=== PATIENT | male | born 1950 | race Caucasian/White ===

== ENCOUNTER 2017-09-28 20:06 | Emergency (ER) | payer MEDICARE, OTHER ==
[2017-09-28] MEDS: NS 1,000 ML IV (21:44)
[2017-09-28] MEDS: ONDANSETRON 4MG/2ML VIAL (J2405) IV (21:45)
[2017-09-28] MEDS: GASTROGRAFIN SOLUTION 30ML PO ×2 (22:15→22:45)
[2017-09-28 22:42] LABS: BASO % 0.3 % (0.0-1.0); EOS # 0.3 10^3/uL (0.0-0.50); HEMATOCRIT 50.8 % (42.0-52.0); IMMATURE GRANULOCYTE % 0.4 % (0-3.0); LYMPH # 1.4 10^3/uL (1.5-4.5); LYMPH % 11.5 % (24.0-44.0); MEAN CORPUSCULAR HEMOGLOBIN 32.8 pg (27.0-33.0); MEAN CORPUSCULAR HGB CONC 33.5 g/dl (32.0-36.5); MEAN CORPUSCULAR VOLUME 97.9 fl (80.0-96.0); MONO # 1.2 10^3/uL (0.0-0.8); MONO % 9.8 % (0.0-5.0); NEUTROPHILS # 9.3 10^3/uL (1.8-7.7); PLATELET COUNT, AUTOMATED 136 10^3/uL (150-450); RED BLOOD COUNT 5.19 10^6/uL (4.30-6.10); RED CELL DISTRIBUTION WIDTH 12.4 % (11.5-14.5); WHITE BLOOD COUNT 12.2 10^3/uL (4.0-10.0)
[2017-09-28] MEDS: MORPHINE 4 MG/ML 1ML VIAL (J2270) IV (22:50)
[2017-09-28 23:08] LABS: ALBUMIN 3.6 GM/DL (3.2-5.2); ALBUMIN/GLOBULIN RATIO 1.03 (1.00-1.93); ALKALINE PHOSPHATASE 72 U/L (45-117); ALT/SGPT 33 U/L (12-78); ANION GAP 7 MEQ/L (8-16); AST/SGOT 22 U/L (7-37); BILIRUBIN,DIRECT 0.9 MG/DL (0.0-0.2); BILIRUBIN,TOTAL 1.8 MG/DL (0.2-1.0); BLOOD UREA NITROGEN 17 MG/DL (7-18); CARBON DIOXIDE LEVEL 31 MEQ/L (21-32); CHLORIDE LEVEL 102 MEQ/L (98-107); CREATININE FOR GFR 1.54 MG/DL (0.70-1.30); GLOMERULAR FILTRATION RATE 48.1 (>49); GLUCOSE, FASTING 104 MG/DL (70-100); LIPASE 69 U/L (73-393); POTASSIUM SERUM 4.1 MEQ/L (3.5-5.1); SODIUM LEVEL 140 MEQ/L (136-145); TOTAL PROTEIN 7.1 GM/DL (6.4-8.2)
[2017-09-29] MEDS ORDERED: ISOVUE-370 76% 100ML VIAL (Q9967) As Ordered (00:13)
[2017-09-29] MEDS: METOPROLOL TART 50 MG TAB PO (00:15)
[2017-09-29] MEDS ORDERED: METOPROLOL TARTRATE 100 MG TAB PO (00:15)
[2017-09-29] MEDS: TAMSULOSIN 0.4 MG CAP PO (01:45)
[2017-09-29] MEDS: NS 1,000 ML IV ×2 (01:45→04:24)
[2017-09-29] MEDS: MORPHINE 4 MG/ML 1ML VIAL (J2270) IV (01:59)
[2017-09-29] MEDS: NORCO 5/325MG TABLET (BULK FOR ED) PO (04:45)
== END 2017-09-29 05:09 | disposition home or self-care (01) ==
LOC: M ED 09-29 05:09
DX: N20.1 Calculus of ureter (principal); K50.90 Crohn's disease, unspecified, without complications; L40.9 Psoriasis, unspecified; Z79.899 Other long term (current) drug therapy; Z79.82 Long term (current) use of aspirin; Z88.8 Allergy status to other drugs, medicaments and biological substances; F17.210 Nicotine dependence, cigarettes, uncomplicated
CPT/HCPCS: J2270

== ENCOUNTER 2020-04-24 14:56 | Emergency (ER) | payer MEDICARE ==
[~2020-04-24] VITALS: Ht 182.9 cm; Wt 87.9 kg
[~2020-04-24 14:56] MED LIST: ASPI81TA86 PO; FLOM0.4C39 PO; IMOD2TAB16 PO; LISI40TA PO; LOPR1TAB7 PO; MELO15TA28 PO; PRED25TA PO
[2020-04-24] MEDS ORDERED: GEMF600T5 PO (15:19)
[2020-04-24] MEDS ORDERED: HUMI40KI SC (15:19)
[2020-04-24] MEDS ORDERED: NS 500 ML IV ONE (15:45)
[2020-04-24 16:49] LABS: BASO % 0.2 % (0.0-1.0); EOS # 0.1 10^3/uL (0.0-0.5); EOS % 0.7 % (0.0-3.0); HEMATOCRIT 38.4 % (42.0-52.0); HEMOGLOBIN 12.4 g/dl (13.5-17.5); LYMPH # 0.8 10^3/uL (1.5-5.0); LYMPH % 5.2 % (24.0-44.0); MEAN CORPUSCULAR HEMOGLOBIN 33.1 pg (27.0-33.0); MEAN CORPUSCULAR HGB CONC 32.3 g/dl (32.0-36.5); MEAN CORPUSCULAR VOLUME 102.4 fl (80.0-96.0); MONO # 1.2 10^3/uL (0.0-0.8); MONO % 8.1 % (0.0-5.0); NEUTROPHILS # 12.8 10^3/uL (1.5-8.5); NEUTROPHILS % 84.9 % (36.0-66.0); PLATELET COUNT, AUTOMATED 259 10^3/uL (150-450); RED BLOOD COUNT 3.75 10^6/uL (4.30-6.10); WHITE BLOOD COUNT 15.1 10^3/uL (4.0-10.0)
[2020-04-24 17:00] LABS: INR 1.05
[2020-04-24] MEDS ORDERED: PIPERACILLIN/TAZOBACTAM SOD 4.5 GM in D5W MINI-BAG PLUS 50 ML IV ONE (17:00)
[2020-04-24] MEDS ORDERED: NS 2,640 ML in IV 1 EA IV ONE (17:00)
[2020-04-24 17:16] LABS: ALBUMIN 2.5 GM/DL (3.2-5.2); ALT/SGPT 110 U/L (12-78); BILIRUBIN,DIRECT 11.6 MG/DL (0.0-0.2); CK-MB VALUE MASS 1.7 NG/ML (<3.6); CPK CREATINE PHOSPHOKINASE 38 U/L (39-308); LIPASE 113 U/L (73-393); MB/CK RELATIVE INDEX 4.47 (< OR =4); TOTAL PROTEIN 6.1 GM/DL (6.4-8.2); TROPONIN I < 0.02 NG/ML (< 0.10)
--- NOTE | 2020-04-24 18:47 | REPVR ---
PROCEDURE INFORMATION: Exam: CT Abdomen And Pelvis Without Contrast Exam date and time: 04/24/2020 5:48 PM Age: 70 years old Clinical indication: Abdominal pain; Additional info: Pain/elevated bili TECHNIQUE: Imaging protocol: Computed tomography of the abdomen and pelvis without contrast. Radiation optimization: All CT scans at this facility use at least one of these dose optimization techniques: automated exposure control; mA and/or kV adjustment per patient size (includes targeted exams where dose is matched to clinical indication); or iterative reconstruction. COMPARISON: CT ABD/PEL W/IV ORAL CONTRAS 09/29/2017 12:14 AM FINDINGS: Lungs: Mild discoid atelectasis at the posterior right lower lobe. Liver: The liver is normal in size and density. No hepatic mass is noted. Moderate intrahepatic biliary ductal dilatation. Gallbladder and bile ducts: Gallbladder distension/hydrops. Borderline thickening of the gallbladder wall. And The gallbladder is 12.5 cm in length and 5.1 cm in diameter. Cholelithiasis. Stones in the gallbladder neck measure up to 13 mm. Choledocholithiasis. At least 4 stones in the CBD measure up to 12 mm. Worsening extrahepatic biliary ductal dilatation. The common bile duct is 23 mm (previously 18 mm). Pancreas: Normal. No ductal dilation. Spleen: Normal. No splenomegaly. Adrenals: Normal. No mass. Kidneys and ureters: Numerous bilateral nonobstructing kidney stones. Stones in the right kidney measure up to 10 mm. Stones in the left kidney measure up to 4 mm. No hydronephrosis. Stomach and bowel: There is a 3.1 cm duodenal diverticulum distal to the ampulla. Stable postsurgical changes at the cecum. Small bowel loops are normal in caliber. The stomach is grossly normal, but evaluation of the gastric wall is limited because the stomach is decompressed. Appendix: No evidence of appendicitis. Intraperitoneal space: Unremarkable. No free air. No significant fluid collection. Vasculature: There is moderate calcific atherosclerosis of the abdominal aorta and iliac arteries. There is no aneurysm. Lymph nodes: Unremarkable. No enlarged lymph nodes. Bladder: 2 bladder stones measure 7 mm. The bladder is otherwise unremarkable. Reproductive: The prostate appears appropriate for 70 years of age. Bones/joints: Unremarkable. No acute fracture. Soft tissues: Unremarkable. IMPRESSION: 1. Gallbladder distension/hydrops. Borderline gallbladder wall thickening. The gallbladder is 12.5 cm in length and 5.1 cm in diameter. Cholelithiasis. Stones in the gallbladder neck measure up to 13 mm. 2. Choledocholithiasis. At least 4 stones in the CBD measure up to 12 mm. Worsening extrahepatic biliary ductal dilatation. The common bile duct is 23 mm (previously 18 mm). ERCP or MRCP is recommended. 3. Numerous bilateral nonobstructing kidney stones. No hydronephrosis. 4. Two bladder stones measure 7 mm. 5. Mild discoid atelectasis at the posterior right lower lobe. Electronically signed by: Thang Cotto On 04/24/2020 18:46:37 PM
[2020-04-24] MEDS ORDERED: NS 1,000 ML IV SCH (19:30)
[2020-04-24 20:16] VITALS: BP 116/66
== END 2020-04-24 20:19 | disposition short-term general hospital (02) ==
LOC: M ED 14:56
DX: K80.70 Calculus of gallbladder and bile duct without cholecystitis without obstruction (principal); N20.0 Calculus of kidney; N21.0 Calculus in bladder; K50.90 Crohn's disease, unspecified, without complications; I10 Essential (primary) hypertension; J45.909 Unspecified asthma, uncomplicated; Z88.8 Allergy status to other drugs, medicaments and biological substances; Z79.82 Long term (current) use of aspirin; Z79.899 Other long term (current) drug therapy
CPT/HCPCS: 74176; 80047; 80076; 81001; 82550; 82553; 83605; 83690; 84484; 85025; 85610; 86850; 86900; 86901; 87040; 87086; 93041; 96361; 96365; 99285; J2543; U0002

== ENCOUNTER 2023-03-30 11:10 | Inpatient (IN) | payer MEDICARE ==
[~2023-03-30] VITALS: Ht 185.4 cm; Wt 89.0 kg
[2023-03-30] VITALS (28 sets, daily range): BP systolic 85–109; BP diastolic 46–58; TEMP 97.8–98.3; O2SAT 81–100
[~2023-03-30 11:10] MED LIST changes: +GEMF600T5 PO; +HUMI40KI SC; -LISI40TA PO; +LISI40TA4 PO
[2023-03-30] MEDS ORDERED: ACETAMINOPHEN TAB 650MG DOSE (2X325MG) PO ONE (11:55)
[2023-03-30 12:08] LABS: BASO # 0.1 10^3/uL (0.0-0.2); BASO % 0.2 % (0.0-1.0); EOS % 0.1 % (0.0-3.0); HEMATOCRIT 35.4 % (42.0-52.0); LYMPH % 3.4 % (24.0-44.0); MEAN CORPUSCULAR HEMOGLOBIN 30.1 pg (27.0-33.0); MEAN CORPUSCULAR HGB CONC 30.2 g/dl (32.0-36.5); MEAN CORPUSCULAR VOLUME 99.7 fl (80.0-96.0); MONO % 9.1 % (2.0-8.0); NEUTROPHILS # 25.8 10^3/uL (1.5-8.5); NEUTROPHILS % 85.9 % (36.0-66.0); PLATELET COUNT, AUTOMATED 176 10^3/uL (150-450); RED BLOOD COUNT 3.55 10^6/uL (4.30-6.10)
[2023-03-30 12:12] LABS: MONO # 2.7 10^3/uL (0.0-0.8)
[2023-03-30 12:13] LABS: HEMOGLOBIN 10.7 g/dl (13.5-17.5); WHITE BLOOD COUNT 30.1 10^3/uL (4.0-10.0)
[2023-03-30 12:19] LABS: INR 1.29; PARTIAL THROMBOPLASTIN TIME 32.4 SECONDS (24.8-34.2); PROTHROMBIN TIME 15.7 SECONDS (12.5-14.5)
[2023-03-30 12:32] LABS: BILIRUBIN,DIRECT 0.3 MG/DL (<0.4); BILIRUBIN,TOTAL 0.4 MG/DL (0.3-1.2); CALCIUM LEVEL 8.8 MG/DL (8.3-10.6); CREATININE FOR GFR 1.65 MG/DL (0.70-1.30); GLOMERULAR FILTRATION RATE 43.6 (>42); POTASSIUM SERUM 4.9 MMOL/L (3.5-5.1); TOTAL PROTEIN 5.4 G/DL (5.7-8.2)
[2023-03-30 12:38] LABS: PROCALCITONIN 31.81 ng/ml
[2023-03-30 12:41] LABS: C REACTIVE PROTEIN QUANTITATIV 32.7 MG/DL (<1.0)
[2023-03-30 12:47] LABS: ABG BASE EXCESS -2.6 (-2.0-2.0); ABG HCO3 24.8 MMOL/L (22.0-26.0); ABG O2 SATURATION 90.4 % (95.0-99.0); ABG PARTIAL PRESSURE CO2 55.6 mmHg (35.0-45.0); ABG PARTIAL PRESSURE O2 64.9 mmHg (75.0-100.0); ABG STANDARD HCO3 22.2 MMOL/L. (22.0-26.0); ABG TOTAL CO2 26.6 MMOL/L (23.0-31.0); ABG pH (ARTERIAL) 7.268 UNITS (7.350-7.450)
[2023-03-30] MEDS ORDERED: CEFEPIME HCL 2 GM in D5W MINI-BAG PLUS 50 ML IV ONE (13:05)
[2023-03-30] MEDS ORDERED: NS 2,450 ML in IV 1 EA IV ONE (13:05)
[2023-03-30] MEDS ORDERED: NOREPINEPHRINE 4MG IN D5 250ML 4 MG in IV 1 EA IV SCH ×2 (13:45)
[2023-03-30 14:42] LABS: APPEARANCE, URINE HAZY (CLEAR); BACTERIA, URINE AUTO 1+ (NEGATIVE); BILIRUBIN, URINE AUTO NEGATIVE (NEGATIVE); BLOOD, URINE BLOOD 1+ (NEGATIVE); COLOR, URINE AMBER (YELLOW); GLUCOSE, URINE (UA) AUTO NEGATIVE (NEGATIVE); KETONE, URINE AUTO NEGATIVE (NEGATIVE); LEUKOCYTE ESTERASE, URINE AUTO 2+ (NEGATIVE); MUCUS, URINE SMALL (NEGATIVE); NITRITE, URINE AUTO NEGATIVE (NEGATIVE); PROTEIN, URINE AUTO 3+ mg/dL (NEGATIVE); RBC, URINE AUTO 12 /HPF (0-3); SPECIFIC GRAVITY URINE AUTO 1.016 (1.002-1.035); SQUAMOUS EPITHELIAL CELL UR AU 1 /HPF (0-6); UROBILINOGEN, URINE AUTO 0.2 mg/dL (0.0-2.0); WBC, URINE AUTO 91 /HPF (0-3)
[2023-03-30] MEDS ORDERED: HYDROCORTISONE 100MG/2ML VIAL IV ONE ×2 (17:00→19:00)
[2023-03-30 17:14] LABS: VENOUS BASE EXCESS -4.8 (-2.0-2.0); VENOUS HCO3 24.4 MMOL/L (23.0-27.0); VENOUS O2 SATURATION 85.3 % (60.0-80.0); VENOUS PARTIAL PRESSURE CO2 65.9 mmHg (38.0-50.0); VENOUS PARTIAL PRESSURE O2 56.4 mmHg (30.0-50.0); VENOUS PH 7.187 UNITS (7.330-7.430); VENOUS STANDARD HCO3 20.3 MMOL/L; VENOUS TOTAL CO2 26.5 MMOL/L (24.0-28.0)
[2023-03-30] MEDS ORDERED: MED REC IN PROGRESS XX SCH (17:20)
[2023-03-30 17:30] LABS: VENOUS HCO3 22.8 MMOL/L (23.0-27.0); VENOUS O2 SATURATION 70.7 % (60.0-80.0); VENOUS PARTIAL PRESSURE CO2 62.6 mmHg (38.0-50.0); VENOUS PARTIAL PRESSURE O2 41.9 mmHg (30.0-50.0); VENOUS PH 7.179 UNITS (7.330-7.430); VENOUS STANDARD HCO3 19.1 MMOL/L; VENOUS TOTAL CO2 24.7 MMOL/L (24.0-28.0)
[2023-03-30 17:41] LABS: FREE T3 1.4 PG/ML (2.3-4.2); FREE T4 0.95 NG/DL (0.89-1.76); THYROID STIMULATING HORMONE 0.565 uIU/ML (0.55-4.78)
[2023-03-30] MEDS ORDERED: AZITHROMYCIN INJ 500 MG, VIAL MATE ADAPTER 1 EACH in NS 250 ML IV ONE (18:00)
[2023-03-30] MEDS: NOREPINEPHRINE 4MG IN D5 250ML 4 MG in IV 1 EA IV SCH ×4 (18:22→20:09)
[2023-03-30] MEDS: VASOPRESSIN INJ 20 UNITS in NS 500 ML IV SCH (18:23)
[2023-03-30 18:36] LABS: VENOUS HCO3 24.8 MMOL/L (23.0-27.0); VENOUS O2 SATURATION 93.7 % (60.0-80.0); VENOUS PARTIAL PRESSURE O2 76.3 mmHg (30.0-50.0); VENOUS PH 7.206 UNITS (7.330-7.430); VENOUS STANDARD HCO3 21.1 MMOL/L; VENOUS TOTAL CO2 26.8 MMOL/L (24.0-28.0)
[2023-03-30] MEDS: IPRATROPIUM 0.5MG/ALBUTEROL 2.5MG INH SOL UD 3ML (DUONEB) NEB SCH ×2 (19:28→23:12)
[2023-03-30] MEDS ORDERED: MUCI600T31 PO (20:09)
[2023-03-30] MEDS ORDERED: FINA5TAB2 PO (20:09)
[2023-03-30] MEDS ORDERED: TAMS1CAP17 PO (20:09)
[2023-03-30] MEDS ORDERED: SYMB16INH INH (20:17)
[2023-03-30] MEDS ORDERED: MAGN400C PO (20:17)
[2023-03-30] MEDS ORDERED: URSO300C3 PO (20:17)
[2023-03-30] MEDS ORDERED: MAGN400C2 PO (20:17)
[2023-03-30] MEDS ORDERED: SPIR1CAP PO (20:26)
[2023-03-30] MEDS ORDERED: ZOLP5TAB PO (20:26)
[2023-03-30] MEDS ORDERED: ALBU8.5H PO (20:26)
[2023-03-30] MEDS ORDERED: CHOL4POW26 PO (20:29)
[2023-03-30] MEDS ORDERED: VITA1CAP25 PO (20:29)
[2023-03-30] MEDS ORDERED: OMEP40CA5 PO (20:29)
[2023-03-30] MEDS ORDERED: D 1010002 PO (20:31)
[2023-03-30] MEDS ORDERED: HOME MED LIST COMPLETE! XX SCH (20:35)
[2023-03-30 20:41] LABS: VENOUS BASE EXCESS -2.8 (-2.0-2.0); VENOUS HCO3 25.7 MMOL/L (23.0-27.0); VENOUS O2 SATURATION 98.7 % (60.0-80.0); VENOUS PARTIAL PRESSURE CO2 64.2 mmHg (38.0-50.0); VENOUS PARTIAL PRESSURE O2 135.1 mmHg (30.0-50.0); VENOUS PH 7.221 UNITS (7.330-7.430); VENOUS STANDARD HCO3 22.1 MMOL/L; VENOUS TOTAL CO2 27.7 MMOL/L (24.0-28.0)
[2023-03-30] MEDS: CHLORHEXIDINE GLUCONATE 0.12 % 15ML UDC (PERIDEX ORAL RINSE) MT SCH (21:36)
[2023-03-30 22:13] LABS: VENOUS HCO3 24.9 MMOL/L (23.0-27.0); VENOUS PARTIAL PRESSURE CO2 58.6 mmHg (38.0-50.0); VENOUS PARTIAL PRESSURE O2 144.3 mmHg (30.0-50.0); VENOUS PH 7.246 UNITS (7.330-7.430); VENOUS TOTAL CO2 26.7 MMOL/L (24.0-28.0)
[2023-03-30 23:47] LABS: VENOUS BASE EXCESS -2.2 (-2.0-2.0); VENOUS HCO3 25.5 MMOL/L (23.0-27.0); VENOUS PARTIAL PRESSURE CO2 58.3 mmHg (38.0-50.0); VENOUS PARTIAL PRESSURE O2 177.5 mmHg (30.0-50.0); VENOUS PH 7.259 UNITS (7.330-7.430); VENOUS STANDARD HCO3 22.7 MMOL/L; VENOUS TOTAL CO2 27.3 MMOL/L (24.0-28.0)
[2023-03-31] VITALS (69 sets, daily range): BP systolic 80–118; BP diastolic 45–67; TEMP 97.5–98.7; O2SAT 89–100
[2023-03-31] MEDS: NOREPINEPHRINE 4MG IN D5 250ML 4 MG in IV 1 EA IV SCH ×4 (01:12→05:44)
[2023-03-31] MEDS: HYDROCORTISONE 100MG/2ML VIAL IV SCH ×3 (02:06→18:26)
[2023-03-31] MEDS: IPRATROPIUM 0.5MG/ALBUTEROL 2.5MG INH SOL UD 3ML (DUONEB) NEB SCH ×6 (03:32→23:22)
[2023-03-31] MEDS: VASOPRESSIN INJ 20 UNITS in NS 500 ML IV SCH (03:44)
[2023-03-31 04:52] LABS: HEMATOCRIT 32.6 % (42.0-52.0); HEMOGLOBIN 9.7 g/dl (13.5-17.5); MEAN CORPUSCULAR HEMOGLOBIN 29.7 pg (27.0-33.0); MEAN CORPUSCULAR HGB CONC 29.8 g/dl (32.0-36.5); MEAN CORPUSCULAR VOLUME 99.7 fl (80.0-96.0); PLATELET COUNT, AUTOMATED 179 10^3/uL (150-450); RED BLOOD COUNT 3.27 10^6/uL (4.30-6.10)
[2023-03-31 05:06] LABS: WHITE BLOOD COUNT 30.2 10^3/uL (4.0-10.0)
[2023-03-31 05:17] LABS: ALBUMIN 1.7 G/DL (3.2-5.2); BILIRUBIN,TOTAL 0.4 MG/DL (0.3-1.2); CALCIUM LEVEL 8.1 MG/DL (8.3-10.6); CREATININE FOR GFR 1.43 MG/DL (0.70-1.30); GLOMERULAR FILTRATION RATE 51.5 (>42); MAGNESIUM LEVEL 1.8 MG/DL (1.8-2.4)
[2023-03-31] MEDS: HEPARIN SOD (PORCINE) 5000UNITS/ML 1ML VIAL/SYRINGE SC SCH ×3 (05:43→22:12)
[2023-03-31 08:01] LABS: VENOUS BASE EXCESS -0.1 (-2.0-2.0); VENOUS HCO3 27.2 MMOL/L (23.0-27.0); VENOUS O2 SATURATION 98.7 % (60.0-80.0); VENOUS PARTIAL PRESSURE CO2 57.1 mmHg (38.0-50.0); VENOUS PARTIAL PRESSURE O2 131.8 mmHg (30.0-50.0); VENOUS PH 7.295 UNITS (7.330-7.430); VENOUS STANDARD HCO3 24.4 MMOL/L; VENOUS TOTAL CO2 28.9 MMOL/L (24.0-28.0)
[2023-03-31] MEDS ORDERED: PANTOPRAZOLE 40MG VIAL IV SCH (09:00)
[2023-03-31] MEDS: CHLORHEXIDINE GLUCONATE 0.12 % 15ML UDC (PERIDEX ORAL RINSE) MT SCH ×2 (09:00→20:39)
[2023-03-31] MEDS: PIPERACILLIN/TAZOBACTAM SOD 4.5 GM in D5W MINI-BAG PLUS 50 ML IV SCH ×3 (09:05→20:43)
[2023-03-31] MEDS: TAMSULOSIN 0.4 MG CAP PO SCH (09:05)
[2023-03-31] MEDS: AZITHROMYCIN 250MG TABLET PO SCH (09:05)
[2023-03-31] MEDS: guaiFENesin ER 600 MG TAB PO SCH (10:19)
[2023-03-31] MEDS: FINASTERIDE 5MG TAB PO SCH (10:19)
[2023-03-31] MEDS: ursodioL 300MG CAP PO SCH ×2 (10:19→20:44)
[2023-03-31] MEDS: ASPIRIN 81MG ENTERIC TABLET PO SCH (10:20)
[2023-03-31] MEDS: CHOLESTYRAMINE 4GM PWD PKT PO SCH (12:16)
[2023-03-31] MEDS: OMEPRAZOLE 20MG CAP PO SCH (20:44)
[2023-04-01] VITALS (19 sets, daily range): BP systolic 93–132; BP diastolic 50–72; TEMP 97.6–99.1; O2SAT 91–99
[2023-04-01] MEDS: NOREPINEPHRINE 4MG IN D5 250ML 4 MG in IV 1 EA IV SCH ×4 (01:50→10:10)
[2023-04-01] MEDS: IPRATROPIUM 0.5MG/ALBUTEROL 2.5MG INH SOL UD 3ML (DUONEB) NEB SCH ×4 (03:17→15:08)
[2023-04-01] MEDS: PIPERACILLIN/TAZOBACTAM SOD 4.5 GM in D5W MINI-BAG PLUS 50 ML IV SCH ×4 (03:39→20:36)
[2023-04-01 05:00] LABS: VENOUS BASE EXCESS 0.4 (-2.0-2.0); VENOUS HCO3 28.3 MMOL/L (23.0-27.0); VENOUS O2 SATURATION 99.2 % (60.0-80.0); VENOUS PARTIAL PRESSURE CO2 63.6 mmHg (38.0-50.0); VENOUS PARTIAL PRESSURE O2 185.3 mmHg (30.0-50.0); VENOUS PH 7.266 UNITS (7.330-7.430); VENOUS STANDARD HCO3 24.9 MMOL/L; VENOUS TOTAL CO2 30.2 MMOL/L (24.0-28.0)
[2023-04-01 05:09] LABS: HEMATOCRIT 29.1 % (42.0-52.0); HEMOGLOBIN 8.8 g/dl (13.5-17.5); MEAN CORPUSCULAR HEMOGLOBIN 29.6 pg (27.0-33.0); MEAN CORPUSCULAR HGB CONC 30.2 g/dl (32.0-36.5); PLATELET COUNT, AUTOMATED 121 10^3/uL (150-450); RED BLOOD COUNT 2.97 10^6/uL (4.30-6.10); WHITE BLOOD COUNT 16.3 10^3/uL (4.0-10.0)
[2023-04-01 05:34] LABS: ALBUMIN 1.7 G/DL (3.2-5.2); ALKALINE PHOSPHATASE 74 U/L (46-116); ALT/SGPT 15 U/L (7.0-40); AST/SGOT 28 U/L (<34); BILIRUBIN,TOTAL 0.2 MG/DL (0.3-1.2); BLOOD UREA NITROGEN 28 MG/DL (9-23); CALCIUM LEVEL 8.4 MG/DL (8.3-10.6); CARBON DIOXIDE LEVEL 28 MMOL/L (20-31); CHLORIDE LEVEL 104 MMOL/L (98-107); CREATININE FOR GFR 1.14 MG/DL (0.70-1.30); GLOMERULAR FILTRATION RATE > 60.0 (>42); GLUCOSE, FASTING 171 MG/DL (74-106); POTASSIUM SERUM 4.4 MMOL/L (3.5-5.1); SODIUM LEVEL 138 MMOL/L (136-145); TOTAL PROTEIN 4.9 G/DL (5.7-8.2)
[2023-04-01] MEDS: HEPARIN SOD (PORCINE) 5000UNITS/ML 1ML VIAL/SYRINGE SC SCH (06:00)
[2023-04-01] MEDS: CHLORHEXIDINE GLUCONATE 0.12 % 15ML UDC (PERIDEX ORAL RINSE) MT SCH ×2 (09:00→21:30)
[2023-04-01] MEDS ORDERED: TAMSULOSIN 0.4 MG CAP PO SCH (09:00)
[2023-04-01] MEDS: ursodioL 300MG CAP PO SCH ×2 (10:01→21:30)
[2023-04-01] MEDS: TAMSULOSIN 0.4 MG CAP PO SCH (10:02)
[2023-04-01] MEDS: OMEPRAZOLE 20MG CAP PO SCH ×2 (10:02→21:30)
[2023-04-01] MEDS: ASPIRIN 81MG ENTERIC TABLET PO SCH (10:02)
[2023-04-01] MEDS: AZITHROMYCIN 250MG TABLET PO SCH (10:03)
[2023-04-01] MEDS: FINASTERIDE 5MG TAB PO SCH (10:03)
[2023-04-01] MEDS: guaiFENesin ER 600 MG TAB PO SCH (10:03)
[2023-04-01] MEDS: CHOLESTYRAMINE 4GM PWD PKT PO SCH (11:07)
[2023-04-01] MEDS ORDERED: IPRATROPIUM 0.5MG/ALBUTEROL 2.5MG INH SOL UD 3ML (DUONEB) NEB PRN (12:30)
[2023-04-01] MEDS: predniSONE 20 MG TAB PO SCH (13:14)
[2023-04-01] MEDS: SYMBICORT 160/4.5MCG INHALER 6GM INH SCH (20:26)
[2023-04-02] MEDS: IPRATROPIUM 0.5MG/ALBUTEROL 2.5MG INH SOL UD 3ML (DUONEB) NEB SCH ×4 (00:10→23:43)
[2023-04-02] MEDS: PIPERACILLIN/TAZOBACTAM SOD 4.5 GM in D5W MINI-BAG PLUS 50 ML IV SCH (02:58)
[2023-04-02] MEDS: ONDANSETRON 4MG 2ML VIAL IV PRN ×2 (03:36→11:39)
[2023-04-02 06:02] LABS: HEMOGLOBIN 9.4 g/dl (13.5-17.5); MEAN CORPUSCULAR HEMOGLOBIN 29.2 pg (27.0-33.0); MEAN CORPUSCULAR HGB CONC 29.4 g/dl (32.0-36.5); MEAN CORPUSCULAR VOLUME 99.4 fl (80.0-96.0); PLATELET COUNT, AUTOMATED 107 10^3/uL (150-450); RED BLOOD COUNT 3.22 10^6/uL (4.30-6.10); WHITE BLOOD COUNT 14.3 10^3/uL (4.0-10.0)
[2023-04-02 06:39] LABS: ALBUMIN 1.8 G/DL (3.2-5.2); ALKALINE PHOSPHATASE 77 U/L (46-116); ALT/SGPT 17 U/L (7.0-40); AST/SGOT 21 U/L (<34); BILIRUBIN,TOTAL 0.2 MG/DL (0.3-1.2); BLOOD UREA NITROGEN 21 MG/DL (9-23); CALCIUM LEVEL 8.9 MG/DL (8.3-10.6); CARBON DIOXIDE LEVEL 31 MMOL/L (20-31); CHLORIDE LEVEL 106 MMOL/L (98-107); CREATININE FOR GFR 0.98 MG/DL (0.70-1.30); GLOMERULAR FILTRATION RATE > 60.0 (>42); GLUCOSE, FASTING 112 MG/DL (74-106); POTASSIUM SERUM 4.5 MMOL/L (3.5-5.1); SODIUM LEVEL 140 MMOL/L (136-145); TOTAL PROTEIN 5.6 G/DL (5.7-8.2)
[2023-04-02 07:19] LABS: LIPASE 35 U/L (12-53)
[2023-04-02] MEDS: TIOTROPIUM INHALER/CAPSULE (SPIRIVA) INH SCH (07:21)
[2023-04-02] MEDS: SYMBICORT 160/4.5MCG INHALER 6GM INH SCH ×2 (07:21→20:15)
[2023-04-02] MEDS: ERTAPENEM SODIUM 1 GM in NS MINI-BAG PLUS 50 ML IV SCH (08:00)
[2023-04-02] MEDS: AZITHROMYCIN 250MG TABLET PO SCH (08:59)
[2023-04-02] MEDS: OMEPRAZOLE 20MG CAP PO SCH ×2 (08:59→20:21)
[2023-04-02] MEDS: guaiFENesin ER 600 MG TAB PO SCH (08:59)
[2023-04-02] MEDS: ASPIRIN 81MG ENTERIC TABLET PO SCH (09:00)
[2023-04-02] MEDS: CHLORHEXIDINE GLUCONATE 0.12 % 15ML UDC (PERIDEX ORAL RINSE) MT SCH ×2 (09:00→20:21)
[2023-04-02] MEDS: ENOXAPARIN 40MG/0.4ML SYRINGE (J1650 PER 10MG) SC SCH (09:00)
[2023-04-02] MEDS: predniSONE 20 MG TAB PO SCH (09:00)
[2023-04-02] MEDS: TAMSULOSIN 0.4 MG CAP PO SCH (09:00)
[2023-04-02] MEDS: FINASTERIDE 5MG TAB PO SCH (09:00)
[2023-04-02] MEDS: ursodioL 300MG CAP PO SCH ×2 (09:19→20:21)
[2023-04-02] MEDS: CHOLESTYRAMINE 4GM PWD PKT PO SCH (11:29)
[2023-04-02] MEDS ORDERED: ISOVUE-370 76% 100ML VIAL As Ordered ONE (12:13)
[2023-04-02] MEDS: NS 1,000 ML IV SCH (13:14)
[2023-04-02 13:16] LABS: ABG BASE EXCESS -0.1 (-2.0-2.0); ABG HCO3 29.2 MMOL/L (22.0-26.0); ABG O2 SATURATION 94.8 % (95.0-99.0); ABG PARTIAL PRESSURE O2 85.1 mmHg (75.0-100.0); ABG STANDARD HCO3 24.4 MMOL/L. (22.0-26.0); ABG TOTAL CO2 31.5 MMOL/L (23.0-31.0)
[2023-04-02 13:17] LABS: ABG pH (ARTERIAL) 7.206 UNITS (7.350-7.450)
[2023-04-02 13:18] LABS: ABG PARTIAL PRESSURE CO2 75.3 mmHg (35.0-45.0)
[2023-04-02 15:00] VITALS: BP 133/73; O2SAT 99
[2023-04-02 15:37] LABS: VENOUS BASE EXCESS 1.7 (-2.0-2.0); VENOUS HCO3 29.3 MMOL/L (23.0-27.0); VENOUS O2 SATURATION 98.7 % (60.0-80.0); VENOUS PARTIAL PRESSURE CO2 61.9 mmHg (38.0-50.0); VENOUS PARTIAL PRESSURE O2 143.8 mmHg (30.0-50.0); VENOUS PH 7.293 UNITS (7.330-7.430); VENOUS TOTAL CO2 31.2 MMOL/L (24.0-28.0)
[2023-04-02 16:00] VITALS: BP 122/68; O2SAT 96
[2023-04-02 16:18] LABS: PROCALCITONIN 4.12 ng/ml
[2023-04-02 17:00] VITALS: BP 132/69; O2SAT 94
[2023-04-02 20:00] VITALS: BP 121/62; TEMP 99.8; O2SAT 95
[2023-04-03] VITALS (35 sets, daily range): BP systolic 110–127; BP diastolic 58–68; TEMP 97.8–99; O2SAT 88–99
[2023-04-03] MEDS: NS 1,000 ML IV SCH (03:38)
[2023-04-03 04:55] LABS: HEMATOCRIT 31.6 % (42.0-52.0); HEMOGLOBIN 9.1 g/dl (13.5-17.5); MEAN CORPUSCULAR HEMOGLOBIN 28.9 pg (27.0-33.0); MEAN CORPUSCULAR HGB CONC 28.8 g/dl (32.0-36.5); MEAN CORPUSCULAR VOLUME 100.3 fl (80.0-96.0); PLATELET COUNT, AUTOMATED 104 10^3/uL (150-450); RED BLOOD COUNT 3.15 10^6/uL (4.30-6.10); WHITE BLOOD COUNT 11.1 10^3/uL (4.0-10.0)
[2023-04-03] MEDS: TIOTROPIUM INHALER/CAPSULE (SPIRIVA) INH SCH (07:21)
[2023-04-03] MEDS: IPRATROPIUM 0.5MG/ALBUTEROL 2.5MG INH SOL UD 3ML (DUONEB) NEB SCH ×3 (07:21→23:44)
[2023-04-03] MEDS: SYMBICORT 160/4.5MCG INHALER 6GM INH SCH ×2 (07:21→19:06)
[2023-04-03] MEDS: ERTAPENEM SODIUM 1 GM in NS MINI-BAG PLUS 50 ML IV SCH (08:10)
[2023-04-03] MEDS ORDERED: DOCUSATE SODIUM 100MG CAPSULE PO SCH (09:00)
[2023-04-03] MEDS: CHLORHEXIDINE GLUCONATE 0.12 % 15ML UDC (PERIDEX ORAL RINSE) MT SCH (09:00)
[2023-04-03] MEDS: CHOLESTYRAMINE 4GM PWD PKT PO SCH (09:24)
[2023-04-03] MEDS: ENOXAPARIN 40MG/0.4ML SYRINGE (J1650 PER 10MG) SC SCH (09:24)
[2023-04-03] MEDS: AZITHROMYCIN 250MG TABLET PO SCH (09:25)
[2023-04-03] MEDS: guaiFENesin ER 600 MG TAB PO SCH (09:25)
[2023-04-03] MEDS: ASPIRIN 81MG ENTERIC TABLET PO SCH (09:25)
[2023-04-03] MEDS: OMEPRAZOLE 20MG CAP PO SCH ×2 (09:25→20:17)
[2023-04-03] MEDS: TAMSULOSIN 0.4 MG CAP PO SCH (09:25)
[2023-04-03] MEDS: ursodioL 300MG CAP PO SCH ×2 (09:25→20:17)
[2023-04-03] MEDS: FINASTERIDE 5MG TAB PO SCH (09:26)
[2023-04-03] MEDS: predniSONE 20 MG TAB PO SCH (09:26)
[2023-04-03] MEDS: SENNA 8.6 MG TAB (SENOKOT) PO SCH (20:16)
[2023-04-03] MEDS: zolPIDEM TARTRATE 5 MG TAB PO PRN (22:56)
[2023-04-04] VITALS (30 sets, daily range): BP systolic 121–143; BP diastolic 60–80; TEMP 97.4–98; O2SAT 88–100
[2023-04-04 05:01] LABS: HEMATOCRIT 28.2 % (42.0-52.0); HEMOGLOBIN 8.3 g/dl (13.5-17.5); MEAN CORPUSCULAR HEMOGLOBIN 29.5 pg (27.0-33.0); MEAN CORPUSCULAR HGB CONC 29.4 g/dl (32.0-36.5); MEAN CORPUSCULAR VOLUME 100.4 fl (80.0-96.0); PLATELET COUNT, AUTOMATED 121 10^3/uL (150-450); RED BLOOD COUNT 2.81 10^6/uL (4.30-6.10); WHITE BLOOD COUNT 9.9 10^3/uL (4.0-10.0)
[2023-04-04] MEDS: TIOTROPIUM INHALER/CAPSULE (SPIRIVA) INH SCH (07:25)
[2023-04-04] MEDS: IPRATROPIUM 0.5MG/ALBUTEROL 2.5MG INH SOL UD 3ML (DUONEB) NEB SCH ×3 (07:25→23:44)
[2023-04-04] MEDS: SYMBICORT 160/4.5MCG INHALER 6GM INH SCH ×2 (07:25→19:38)
[2023-04-04] MEDS: ENOXAPARIN 40MG/0.4ML SYRINGE (J1650 PER 10MG) SC SCH (09:29)
[2023-04-04] MEDS: TAMSULOSIN 0.4 MG CAP PO SCH (09:29)
[2023-04-04] MEDS: ASPIRIN 81MG ENTERIC TABLET PO SCH (09:29)
[2023-04-04] MEDS: CHOLESTYRAMINE 4GM PWD PKT PO SCH (09:29)
[2023-04-04] MEDS: ursodioL 300MG CAP PO SCH ×2 (09:30→20:39)
[2023-04-04] MEDS: guaiFENesin ER 600 MG TAB PO SCH (09:30)
[2023-04-04] MEDS: predniSONE 2.5 MG TAB PO SCH (09:30)
[2023-04-04] MEDS: FINASTERIDE 5MG TAB PO SCH (09:30)
[2023-04-04] MEDS: OMEPRAZOLE 20MG CAP PO SCH ×2 (09:30→20:39)
[2023-04-04] MEDS: BACTRIM 160MG/800MG DS TAB PO SCH ×2 (09:33→20:39)
[2023-04-04] MEDS: SENNA 8.6 MG TAB (SENOKOT) PO SCH (20:01)
[2023-04-04] MEDS: zolPIDEM TARTRATE 5 MG TAB PO PRN (20:40)
[2023-04-04] MEDS: ONDANSETRON 4MG 2ML VIAL IV PRN (20:51)
[2023-04-05] VITALS (19 sets, daily range): BP systolic 104–138; BP diastolic 54–80; TEMP 97.6–99; O2SAT 89–98
[2023-04-05] MEDS: SYMBICORT 160/4.5MCG INHALER 6GM INH SCH ×2 (07:36→19:01)
[2023-04-05] MEDS: IPRATROPIUM 0.5MG/ALBUTEROL 2.5MG INH SOL UD 3ML (DUONEB) NEB SCH ×3 (07:36→23:19)
[2023-04-05] MEDS: ENOXAPARIN 40MG/0.4ML SYRINGE (J1650 PER 10MG) SC SCH (09:02)
[2023-04-05] MEDS: TAMSULOSIN 0.4 MG CAP PO SCH (09:02)
[2023-04-05] MEDS: guaiFENesin ER 600 MG TAB PO SCH (09:03)
[2023-04-05] MEDS: ASPIRIN 81MG ENTERIC TABLET PO SCH (09:03)
[2023-04-05] MEDS: CHOLESTYRAMINE 4GM PWD PKT PO SCH (09:03)
[2023-04-05] MEDS: OMEPRAZOLE 20MG CAP PO SCH ×2 (09:03→20:10)
[2023-04-05] MEDS: ursodioL 300MG CAP PO SCH ×2 (09:03→20:10)
[2023-04-05] MEDS: FINASTERIDE 5MG TAB PO SCH (09:03)
[2023-04-05] MEDS: predniSONE 2.5 MG TAB PO SCH (09:03)
[2023-04-05] MEDS: BACTRIM 160MG/800MG DS TAB PO SCH ×2 (09:03→20:10)
[2023-04-05 14:12] LABS: BASO % 0.3 % (0.0-1.0); EOS # 0.2 10^3/uL (0.0-0.5); EOS % 2.1 % (0.0-3.0); HEMATOCRIT 30.9 % (42.0-52.0); HEMOGLOBIN 9.2 g/dl (13.5-17.5); LYMPH % 9.1 % (24.0-44.0); MEAN CORPUSCULAR HEMOGLOBIN 29.3 pg (27.0-33.0); MEAN CORPUSCULAR HGB CONC 29.8 g/dl (32.0-36.5); MEAN CORPUSCULAR VOLUME 98.4 fl (80.0-96.0); MONO # 1.4 10^3/uL (0.0-0.8); MONO % 12.2 % (2.0-8.0); NEUTROPHILS # 8.3 10^3/uL (1.5-8.5); NEUTROPHILS % 73.9 % (36.0-66.0); PLATELET COUNT, AUTOMATED 151 10^3/uL (150-450); RED BLOOD COUNT 3.14 10^6/uL (4.30-6.10); WHITE BLOOD COUNT 11.3 10^3/uL (4.0-10.0)
[2023-04-05 14:20] LABS: ABG BASE EXCESS 7.9 (-2.0-2.0); ABG HCO3 33.2 MMOL/L (22.0-26.0); ABG O2 SATURATION 91.9 % (95.0-99.0); ABG PARTIAL PRESSURE CO2 50.2 mmHg (35.0-45.0); ABG PARTIAL PRESSURE O2 58.5 mmHg (75.0-100.0); ABG STANDARD HCO3 31.6 MMOL/L. (22.0-26.0); ABG TOTAL CO2 34.7 MMOL/L (23.0-31.0); ABG pH (ARTERIAL) 7.438 UNITS (7.350-7.450)
[2023-04-05 14:43] LABS: BLOOD UREA NITROGEN 12 MG/DL (9-23); CALCIUM LEVEL 8.7 MG/DL (8.3-10.6); CARBON DIOXIDE LEVEL 35 MMOL/L (20-31); CHLORIDE LEVEL 102 MMOL/L (98-107); CREATININE FOR GFR 0.75 MG/DL (0.70-1.30); GLOMERULAR FILTRATION RATE > 60.0 (>42); GLUCOSE, FASTING 125 MG/DL (74-106); PHOSPHORUS LEVEL 1.6 MG/DL (2.4-5.1); POTASSIUM SERUM 4.4 MMOL/L (3.5-5.1); SODIUM LEVEL 140 MMOL/L (136-145)
[2023-04-05] MEDS: TIOTROPIUM INHALER/CAPSULE (SPIRIVA) INH SCH (15:18)
[2023-04-05] MEDS: SENNA 8.6 MG TAB (SENOKOT) PO SCH (20:04)
[2023-04-05] MEDS: zolPIDEM TARTRATE 5 MG TAB PO PRN (20:10)
[2023-04-06] VITALS (8 sets, daily range): BP systolic 113–125; BP diastolic 58–63; TEMP 97–98.1; O2SAT 90–96
[2023-04-06 04:46] LABS: BASO % 0.3 % (0.0-1.0); EOS # 0.3 10^3/uL (0.0-0.5); EOS % 2.6 % (0.0-3.0); HEMATOCRIT 29.6 % (42.0-52.0); HEMOGLOBIN 8.9 g/dl (13.5-17.5); LYMPH # 1.6 10^3/uL (1.5-5.0); LYMPH % 14.4 % (24.0-44.0); MEAN CORPUSCULAR HEMOGLOBIN 29.2 pg (27.0-33.0); MEAN CORPUSCULAR HGB CONC 30.1 g/dl (32.0-36.5); MONO # 1.3 10^3/uL (0.0-0.8); MONO % 11.7 % (2.0-8.0); NEUTROPHILS # 7.3 10^3/uL (1.5-8.5); NEUTROPHILS % 67.2 % (36.0-66.0); PLATELET COUNT, AUTOMATED 164 10^3/uL (150-450); RED BLOOD COUNT 3.05 10^6/uL (4.30-6.10); WHITE BLOOD COUNT 10.8 10^3/uL (4.0-10.0)
[2023-04-06 05:04] LABS: BLOOD UREA NITROGEN 11 MG/DL (9-23); CALCIUM LEVEL 8.3 MG/DL (8.3-10.6); CARBON DIOXIDE LEVEL 35 MMOL/L (20-31); CHLORIDE LEVEL 102 MMOL/L (98-107); CREATININE FOR GFR 0.79 MG/DL (0.70-1.30); GLOMERULAR FILTRATION RATE > 60.0 (>42); GLUCOSE, FASTING 112 MG/DL (74-106); POTASSIUM SERUM 4.4 MMOL/L (3.5-5.1); SODIUM LEVEL 141 MMOL/L (136-145)
[2023-04-06 05:26] LABS: ABG HCO3 30.8 MMOL/L (22.0-26.0); ABG O2 SATURATION 91.8 % (95.0-99.0); ABG PARTIAL PRESSURE CO2 45.8 mmHg (35.0-45.0); ABG PARTIAL PRESSURE O2 60.5 mmHg (75.0-100.0); ABG STANDARD HCO3 29.8 MMOL/L. (22.0-26.0); ABG TOTAL CO2 32.2 MMOL/L (23.0-31.0); ABG pH (ARTERIAL) 7.445 UNITS (7.350-7.450)
[2023-04-06] MEDS: IPRATROPIUM 0.5MG/ALBUTEROL 2.5MG INH SOL UD 3ML (DUONEB) NEB SCH ×3 (07:10→23:56)
[2023-04-06] MEDS: SYMBICORT 160/4.5MCG INHALER 6GM INH SCH ×2 (07:10→19:42)
[2023-04-06] MEDS: TIOTROPIUM INHALER/CAPSULE (SPIRIVA) INH SCH (07:10)
[2023-04-06] MEDS: ursodioL 300MG CAP PO SCH ×2 (11:09→20:25)
[2023-04-06] MEDS: CHOLESTYRAMINE 4GM PWD PKT PO SCH (11:09)
[2023-04-06] MEDS: ENOXAPARIN 40MG/0.4ML SYRINGE (J1650 PER 10MG) SC SCH (11:09)
[2023-04-06] MEDS: FINASTERIDE 5MG TAB PO SCH (11:09)
[2023-04-06] MEDS: ASPIRIN 81MG ENTERIC TABLET PO SCH (11:10)
[2023-04-06] MEDS: guaiFENesin ER 600 MG TAB PO SCH (11:10)
[2023-04-06] MEDS: OMEPRAZOLE 20MG CAP PO SCH ×2 (11:10→20:26)
[2023-04-06] MEDS: LACTOBACILLUS ACIDOPHILUS CAP (BACID) PO SCH ×2 (11:10→18:29)
[2023-04-06] MEDS: TAMSULOSIN 0.4 MG CAP PO SCH (11:10)
[2023-04-06] MEDS: BACTRIM 160MG/800MG DS TAB PO SCH ×2 (11:20→20:25)
[2023-04-06] MEDS: predniSONE 50 MG TAB PO SCH (11:20)
[2023-04-06] MEDS: zolPIDEM TARTRATE 5 MG TAB PO PRN (20:25)
[2023-04-07] VITALS (7 sets, daily range): BP systolic 112–136; BP diastolic 55–73; TEMP 97.5–98.6; O2SAT 83–95
[2023-04-07 06:15] LABS: HEMATOCRIT 29.4 % (42.0-52.0); HEMOGLOBIN 8.9 g/dl (13.5-17.5); MEAN CORPUSCULAR HEMOGLOBIN 28.8 pg (27.0-33.0); MEAN CORPUSCULAR HGB CONC 30.3 g/dl (32.0-36.5); MEAN CORPUSCULAR VOLUME 95.1 fl (80.0-96.0); PLATELET COUNT, AUTOMATED 202 10^3/uL (150-450); RED BLOOD COUNT 3.09 10^6/uL (4.30-6.10); WHITE BLOOD COUNT 11.9 10^3/uL (4.0-10.0)
[2023-04-07 06:42] LABS: BLOOD UREA NITROGEN 13 MG/DL (9-23); CALCIUM LEVEL 8.3 MG/DL (8.3-10.6); CARBON DIOXIDE LEVEL 32 MMOL/L (20-31); CHLORIDE LEVEL 102 MMOL/L (98-107); GLOMERULAR FILTRATION RATE > 60.0 (>42); GLUCOSE, FASTING 112 MG/DL (74-106); POTASSIUM SERUM 4.3 MMOL/L (3.5-5.1); SODIUM LEVEL 141 MMOL/L (136-145)
[2023-04-07] MEDS: SYMBICORT 160/4.5MCG INHALER 6GM INH SCH ×2 (07:31→19:22)
[2023-04-07] MEDS: IPRATROPIUM 0.5MG/ALBUTEROL 2.5MG INH SOL UD 3ML (DUONEB) NEB SCH ×3 (07:31→23:28)
[2023-04-07] MEDS: TIOTROPIUM INHALER/CAPSULE (SPIRIVA) INH SCH (07:31)
[2023-04-07] MEDS: guaiFENesin ER 600 MG TAB PO SCH (08:43)
[2023-04-07] MEDS: BACTRIM 160MG/800MG DS TAB PO SCH ×2 (08:43→21:47)
[2023-04-07] MEDS: TAMSULOSIN 0.4 MG CAP PO SCH (08:43)
[2023-04-07] MEDS: FINASTERIDE 5MG TAB PO SCH (08:43)
[2023-04-07] MEDS: OMEPRAZOLE 20MG CAP PO SCH ×2 (08:43→21:47)
[2023-04-07] MEDS: ENOXAPARIN 40MG/0.4ML SYRINGE (J1650 PER 10MG) SC SCH (08:43)
[2023-04-07] MEDS: ASPIRIN 81MG ENTERIC TABLET PO SCH (08:44)
[2023-04-07] MEDS: LACTOBACILLUS ACIDOPHILUS CAP (BACID) PO SCH ×2 (08:44→18:00)
[2023-04-07] MEDS: predniSONE 50 MG TAB PO SCH (09:52)
[2023-04-07] MEDS: ursodioL 300MG CAP PO SCH ×2 (09:52→21:47)
[2023-04-07] MEDS: CHOLESTYRAMINE 4GM PWD PKT PO SCH (11:17)
[2023-04-08 05:47] VITALS: BP 121/63; TEMP 98.1; O2SAT 96
[2023-04-08 05:47] LABS: HEMATOCRIT 27.2 % (42.0-52.0); HEMOGLOBIN 8.5 g/dl (13.5-17.5); MEAN CORPUSCULAR HEMOGLOBIN 29.3 pg (27.0-33.0); MEAN CORPUSCULAR HGB CONC 31.3 g/dl (32.0-36.5); MEAN CORPUSCULAR VOLUME 93.8 fl (80.0-96.0); PLATELET COUNT, AUTOMATED 222 10^3/uL (150-450); WHITE BLOOD COUNT 13.4 10^3/uL (4.0-10.0)
[2023-04-08 06:22] LABS: BLOOD UREA NITROGEN 12 MG/DL (9-23); CARBON DIOXIDE LEVEL 31 MMOL/L (20-31); CHLORIDE LEVEL 102 MMOL/L (98-107); CREATININE FOR GFR 0.86 MG/DL (0.70-1.30); GLOMERULAR FILTRATION RATE > 60.0 (>42); GLUCOSE, FASTING 123 MG/DL (74-106); POTASSIUM SERUM 4.2 MMOL/L (3.5-5.1); SODIUM LEVEL 138 MMOL/L (136-145)
[2023-04-08] MEDS: TIOTROPIUM INHALER/CAPSULE (SPIRIVA) INH SCH (07:03)
[2023-04-08] MEDS: SYMBICORT 160/4.5MCG INHALER 6GM INH SCH ×2 (07:03→20:12)
[2023-04-08] MEDS: IPRATROPIUM 0.5MG/ALBUTEROL 2.5MG INH SOL UD 3ML (DUONEB) NEB SCH ×3 (07:03→23:20)
[2023-04-08] MEDS: ASPIRIN 81MG ENTERIC TABLET PO SCH (09:08)
[2023-04-08] MEDS: LACTOBACILLUS ACIDOPHILUS CAP (BACID) PO SCH ×2 (09:09→17:37)
[2023-04-08] MEDS: BACTRIM 160MG/800MG DS TAB PO SCH ×2 (09:09→20:10)
[2023-04-08] MEDS: guaiFENesin ER 600 MG TAB PO SCH (09:09)
[2023-04-08] MEDS: FINASTERIDE 5MG TAB PO SCH (09:09)
[2023-04-08] MEDS: ENOXAPARIN 40MG/0.4ML SYRINGE (J1650 PER 10MG) SC SCH (09:09)
[2023-04-08] MEDS: predniSONE 50 MG TAB PO SCH (09:09)
[2023-04-08] MEDS: OMEPRAZOLE 20MG CAP PO SCH ×2 (09:09→20:10)
[2023-04-08] MEDS: TAMSULOSIN 0.4 MG CAP PO SCH (09:09)
[2023-04-08] MEDS: ursodioL 300MG CAP PO SCH ×2 (09:09→20:10)
[2023-04-08] MEDS: CHOLESTYRAMINE 4GM PWD PKT PO SCH (11:39)
[2023-04-08 14:00] VITALS: BP 123/58; TEMP 97.2; O2SAT 93
[2023-04-08 18:08] VITALS: BP 137/60; O2SAT 94
[2023-04-08 22:00] VITALS: BP 136/65; TEMP 97.3; O2SAT 93
[2023-04-09 05:30] VITALS: BP 126/66; TEMP 97.1; O2SAT 93
[2023-04-09 06:17] LABS: HEMATOCRIT 29.8 % (42.0-52.0); HEMOGLOBIN 9.1 g/dl (13.5-17.5); MEAN CORPUSCULAR HEMOGLOBIN 29.1 pg (27.0-33.0); MEAN CORPUSCULAR HGB CONC 30.5 g/dl (32.0-36.5); MEAN CORPUSCULAR VOLUME 95.2 fl (80.0-96.0); PLATELET COUNT, AUTOMATED 244 10^3/uL (150-450); RED BLOOD COUNT 3.13 10^6/uL (4.30-6.10); WHITE BLOOD COUNT 16.4 10^3/uL (4.0-10.0)
[2023-04-09 06:41] LABS: BLOOD UREA NITROGEN 12 MG/DL (9-23); CARBON DIOXIDE LEVEL 30 MMOL/L (20-31); CHLORIDE LEVEL 103 MMOL/L (98-107); CREATININE FOR GFR 0.92 MG/DL (0.70-1.30); GLOMERULAR FILTRATION RATE > 60.0 (>42); GLUCOSE, FASTING 89 MG/DL (74-106); POTASSIUM SERUM 4.5 MMOL/L (3.5-5.1); SODIUM LEVEL 138 MMOL/L (136-145)
[2023-04-09] MEDS: IPRATROPIUM 0.5MG/ALBUTEROL 2.5MG INH SOL UD 3ML (DUONEB) NEB SCH ×3 (07:17→23:11)
[2023-04-09] MEDS: TIOTROPIUM INHALER/CAPSULE (SPIRIVA) INH SCH (07:17)
[2023-04-09] MEDS: SYMBICORT 160/4.5MCG INHALER 6GM INH SCH ×2 (07:17→19:57)
[2023-04-09] MEDS: ENOXAPARIN 40MG/0.4ML SYRINGE (J1650 PER 10MG) SC SCH (08:22)
[2023-04-09] MEDS: OMEPRAZOLE 20MG CAP PO SCH ×2 (08:22→19:43)
[2023-04-09] MEDS: ASPIRIN 81MG ENTERIC TABLET PO SCH (08:22)
[2023-04-09] MEDS: ursodioL 300MG CAP PO SCH ×2 (08:22→19:43)
[2023-04-09] MEDS: TAMSULOSIN 0.4 MG CAP PO SCH (08:22)
[2023-04-09] MEDS: FINASTERIDE 5MG TAB PO SCH (08:22)
[2023-04-09] MEDS: LACTOBACILLUS ACIDOPHILUS CAP (BACID) PO SCH ×2 (08:22→17:04)
[2023-04-09] MEDS: guaiFENesin ER 600 MG TAB PO SCH (08:22)
[2023-04-09] MEDS: predniSONE 50 MG TAB PO SCH (08:24)
[2023-04-09] MEDS: CHOLESTYRAMINE 4GM PWD PKT PO SCH (10:33)
[2023-04-09 13:57] VITALS: BP 117/57; TEMP 97.5; O2SAT 92
[2023-04-09 20:00] VITALS: BP 129/60; TEMP 97.6; O2SAT 96
[2023-04-09] MEDS: zolPIDEM TARTRATE 5 MG TAB PO PRN (23:09)
[2023-04-10 06:00] VITALS: BP 126/67; TEMP 97.6; O2SAT 96
[2023-04-10 06:46] LABS: HEMATOCRIT 31.2 % (42.0-52.0); HEMOGLOBIN 9.2 g/dl (13.5-17.5); MEAN CORPUSCULAR HEMOGLOBIN 28.7 pg (27.0-33.0); MEAN CORPUSCULAR HGB CONC 29.5 g/dl (32.0-36.5); MEAN CORPUSCULAR VOLUME 97.2 fl (80.0-96.0); PLATELET COUNT, AUTOMATED 234 10^3/uL (150-450); RED BLOOD COUNT 3.21 10^6/uL (4.30-6.10); WHITE BLOOD COUNT 17.5 10^3/uL (4.0-10.0)
[2023-04-10 07:20] LABS: BLOOD UREA NITROGEN 12 MG/DL (9-23); CARBON DIOXIDE LEVEL 30 MMOL/L (20-31); CHLORIDE LEVEL 105 MMOL/L (98-107); GLOMERULAR FILTRATION RATE > 60.0 (>42); GLUCOSE, FASTING 105 MG/DL (74-106); POTASSIUM SERUM 4.1 MMOL/L (3.5-5.1); SODIUM LEVEL 141 MMOL/L (136-145)
[2023-04-10] MEDS: IPRATROPIUM 0.5MG/ALBUTEROL 2.5MG INH SOL UD 3ML (DUONEB) NEB SCH ×3 (07:24→20:29)
[2023-04-10] MEDS: TIOTROPIUM INHALER/CAPSULE (SPIRIVA) INH SCH (07:24)
[2023-04-10] MEDS: SYMBICORT 160/4.5MCG INHALER 6GM INH SCH ×2 (07:24→20:28)
[2023-04-10] MEDS: TAMSULOSIN 0.4 MG CAP PO SCH (08:40)
[2023-04-10] MEDS: predniSONE 50 MG TAB PO SCH (08:40)
[2023-04-10] MEDS: ASPIRIN 81MG ENTERIC TABLET PO SCH (08:40)
[2023-04-10] MEDS: FINASTERIDE 5MG TAB PO SCH (08:40)
[2023-04-10] MEDS: ENOXAPARIN 40MG/0.4ML SYRINGE (J1650 PER 10MG) SC SCH (08:40)
[2023-04-10] MEDS: LACTOBACILLUS ACIDOPHILUS CAP (BACID) PO SCH ×2 (08:40→18:24)
[2023-04-10] MEDS: ursodioL 300MG CAP PO SCH ×2 (08:40→22:56)
[2023-04-10] MEDS: guaiFENesin ER 600 MG TAB PO SCH (08:40)
[2023-04-10] MEDS: OMEPRAZOLE 20MG CAP PO SCH ×2 (08:40→22:55)
[2023-04-10] MEDS: CHOLESTYRAMINE 4GM PWD PKT PO SCH (10:52)
[2023-04-10 13:28] LABS: PROCALCITONIN 0.27 ng/ml
[2023-04-10 13:49] VITALS: BP 117/63; TEMP 96.9; O2SAT 94
[2023-04-10 22:00] VITALS: BP 135/59; TEMP 97.5; O2SAT 95
[2023-04-11 05:56] VITALS: BP 132/60; TEMP 97.1; O2SAT 95
[2023-04-11 06:15] LABS: BASO % 0.1 % (0.0-1.0); EOS % 0.1 % (0.0-3.0); HEMATOCRIT 29.4 % (42.0-52.0); HEMOGLOBIN 8.8 g/dl (13.5-17.5); LYMPH # 1.3 10^3/uL (1.5-5.0); MEAN CORPUSCULAR HEMOGLOBIN 29.3 pg (27.0-33.0); MEAN CORPUSCULAR HGB CONC 29.9 g/dl (32.0-36.5); MONO # 1.3 10^3/uL (0.0-0.8); MONO % 6.7 % (2.0-8.0); NEUTROPHILS # 15.9 10^3/uL (1.5-8.5); NEUTROPHILS % 84.5 % (36.0-66.0); PLATELET COUNT, AUTOMATED 224 10^3/uL (150-450); WHITE BLOOD COUNT 18.8 10^3/uL (4.0-10.0)
[2023-04-11] MEDS: SYMBICORT 160/4.5MCG INHALER 6GM INH SCH ×2 (08:07→19:54)
[2023-04-11] MEDS: IPRATROPIUM 0.5MG/ALBUTEROL 2.5MG INH SOL UD 3ML (DUONEB) NEB SCH ×3 (08:07→23:21)
[2023-04-11] MEDS: TIOTROPIUM INHALER/CAPSULE (SPIRIVA) INH SCH (08:07)
[2023-04-11] MEDS ORDERED: NS 1,000 ML IV SCH (08:20)
[2023-04-11] MEDS: guaiFENesin ER 600 MG TAB PO SCH (10:11)
[2023-04-11] MEDS: predniSONE 2.5 MG TAB PO SCH (10:11)
[2023-04-11] MEDS: ASPIRIN 81MG ENTERIC TABLET PO SCH (10:12)
[2023-04-11] MEDS: ENOXAPARIN 40MG/0.4ML SYRINGE (J1650 PER 10MG) SC SCH (10:12)
[2023-04-11] MEDS: FINASTERIDE 5MG TAB PO SCH (10:12)
[2023-04-11] MEDS: TAMSULOSIN 0.4 MG CAP PO SCH (10:12)
[2023-04-11] MEDS: LACTOBACILLUS ACIDOPHILUS CAP (BACID) PO SCH ×2 (10:12→18:00)
[2023-04-11] MEDS: ursodioL 300MG CAP PO SCH ×2 (10:12→20:36)
[2023-04-11] MEDS: OMEPRAZOLE 20MG CAP PO SCH ×2 (10:13→20:35)
[2023-04-11] MEDS: CHOLESTYRAMINE 4GM PWD PKT PO SCH (10:57)
[2023-04-11 14:35] VITALS: BP 134/70; TEMP 96.2; O2SAT 99
[2023-04-11 19:29] VITALS: BP 122/58; TEMP 97.2; O2SAT 99
[2023-04-12 05:23] VITALS: BP 113/58; TEMP 97.2; O2SAT 96
[2023-04-12 06:16] LABS: ABG BASE EXCESS 0.5 (-2.0-2.0); ABG HCO3 26.3 MMOL/L (22.0-26.0); ABG O2 SATURATION 95.7 % (95.0-99.0); ABG PARTIAL PRESSURE CO2 47.9 mmHg (35.0-45.0); ABG STANDARD HCO3 24.9 MMOL/L. (22.0-26.0); ABG TOTAL CO2 27.8 MMOL/L (23.0-31.0); ABG pH (ARTERIAL) 7.358 UNITS (7.350-7.450)
[2023-04-12 06:58] LABS: BASO % 0.2 % (0.0-1.0); EOS # 0.2 10^3/uL (0.0-0.5); EOS % 0.9 % (0.0-3.0); HEMATOCRIT 29.9 % (42.0-52.0); HEMOGLOBIN 8.9 g/dl (13.5-17.5); LYMPH # 1.9 10^3/uL (1.5-5.0); LYMPH % 10.5 % (24.0-44.0); MEAN CORPUSCULAR HEMOGLOBIN 29.6 pg (27.0-33.0); MEAN CORPUSCULAR HGB CONC 29.8 g/dl (32.0-36.5); MEAN CORPUSCULAR VOLUME 99.3 fl (80.0-96.0); MONO # 1.4 10^3/uL (0.0-0.8); MONO % 8.1 % (2.0-8.0); NEUTROPHILS # 13.9 10^3/uL (1.5-8.5); NEUTROPHILS % 79.1 % (36.0-66.0); PLATELET COUNT, AUTOMATED 204 10^3/uL (150-450); RED BLOOD COUNT 3.01 10^6/uL (4.30-6.10); WHITE BLOOD COUNT 17.6 10^3/uL (4.0-10.0)
[2023-04-12 07:29] LABS: BLOOD UREA NITROGEN 13 MG/DL (9-23); CARBON DIOXIDE LEVEL 30 MMOL/L (20-31); CHLORIDE LEVEL 108 MMOL/L (98-107); CREATININE FOR GFR 0.72 MG/DL (0.70-1.30); GLOMERULAR FILTRATION RATE > 60.0 (>42); GLUCOSE, FASTING 95 MG/DL (74-106); SODIUM LEVEL 143 MMOL/L (136-145)
[2023-04-12] MEDS: TIOTROPIUM INHALER/CAPSULE (SPIRIVA) INH SCH (07:34)
[2023-04-12] MEDS: SYMBICORT 160/4.5MCG INHALER 6GM INH SCH ×2 (07:34→19:41)
[2023-04-12] MEDS: IPRATROPIUM 0.5MG/ALBUTEROL 2.5MG INH SOL UD 3ML (DUONEB) NEB SCH ×3 (07:34→19:41)
[2023-04-12] MEDS: LACTOBACILLUS ACIDOPHILUS CAP (BACID) PO SCH ×2 (08:36→17:05)
[2023-04-12] MEDS: ursodioL 300MG CAP PO SCH ×2 (08:37→20:06)
[2023-04-12] MEDS: ASPIRIN 81MG ENTERIC TABLET PO SCH (08:37)
[2023-04-12] MEDS: FINASTERIDE 5MG TAB PO SCH (08:37)
[2023-04-12] MEDS: ENOXAPARIN 40MG/0.4ML SYRINGE (J1650 PER 10MG) SC SCH (08:37)
[2023-04-12] MEDS: TAMSULOSIN 0.4 MG CAP PO SCH (08:37)
[2023-04-12] MEDS: OMEPRAZOLE 20MG CAP PO SCH ×2 (08:37→20:06)
[2023-04-12] MEDS: predniSONE 2.5 MG TAB PO SCH (08:37)
[2023-04-12] MEDS: guaiFENesin ER 600 MG TAB PO SCH (08:37)
[2023-04-12] MEDS: CHOLESTYRAMINE 4GM PWD PKT PO SCH (09:38)
[2023-04-12 14:00] VITALS: BP 115/56; TEMP 97.3; O2SAT 94
[2023-04-12 20:00] VITALS: BP 123/58; TEMP 97.6; O2SAT 96
[2023-04-13 03:22] VITALS: O2SAT 96
[2023-04-13 05:49] VITALS: BP 116/64; TEMP 98.2; O2SAT 94
[2023-04-13 06:49] LABS: BASO % 0.1 % (0.0-1.0); EOS # 0.2 10^3/uL (0.0-0.5); EOS % 1.5 % (0.0-3.0); HEMATOCRIT 28.1 % (42.0-52.0); HEMOGLOBIN 8.4 g/dl (13.5-17.5); LYMPH # 1.5 10^3/uL (1.5-5.0); LYMPH % 10.3 % (24.0-44.0); MEAN CORPUSCULAR HEMOGLOBIN 29.2 pg (27.0-33.0); MEAN CORPUSCULAR HGB CONC 29.9 g/dl (32.0-36.5); MEAN CORPUSCULAR VOLUME 97.6 fl (80.0-96.0); MONO # 1.5 10^3/uL (0.0-0.8); MONO % 9.8 % (2.0-8.0); NEUTROPHILS # 11.5 10^3/uL (1.5-8.5); NEUTROPHILS % 77.6 % (36.0-66.0); PLATELET COUNT, AUTOMATED 194 10^3/uL (150-450); RED BLOOD COUNT 2.88 10^6/uL (4.30-6.10); WHITE BLOOD COUNT 14.8 10^3/uL (4.0-10.0)
[2023-04-13] MEDS: TIOTROPIUM INHALER/CAPSULE (SPIRIVA) INH SCH (07:32)
[2023-04-13] MEDS: SYMBICORT 160/4.5MCG INHALER 6GM INH SCH ×2 (07:32→19:17)
[2023-04-13] MEDS: IPRATROPIUM 0.5MG/ALBUTEROL 2.5MG INH SOL UD 3ML (DUONEB) NEB SCH ×2 (07:32→19:17)
[2023-04-13] MEDS: TAMSULOSIN 0.4 MG CAP PO SCH (08:16)
[2023-04-13] MEDS: guaiFENesin ER 600 MG TAB PO SCH (08:16)
[2023-04-13] MEDS: OMEPRAZOLE 20MG CAP PO SCH ×2 (08:16→20:06)
[2023-04-13] MEDS: ASPIRIN 81MG ENTERIC TABLET PO SCH (08:16)
[2023-04-13] MEDS: FINASTERIDE 5MG TAB PO SCH (08:16)
[2023-04-13] MEDS: ursodioL 300MG CAP PO SCH ×2 (08:16→20:06)
[2023-04-13] MEDS: LACTOBACILLUS ACIDOPHILUS CAP (BACID) PO SCH ×2 (08:16→17:19)
[2023-04-13] MEDS: predniSONE 2.5 MG TAB PO SCH (08:16)
[2023-04-13] MEDS: ENOXAPARIN 40MG/0.4ML SYRINGE (J1650 PER 10MG) SC SCH (08:16)
[2023-04-13] MEDS: CHOLESTYRAMINE 4GM PWD PKT PO SCH (10:00)
[2023-04-13 10:05] VITALS: BP 110/53; TEMP 98.4; O2SAT 94
[2023-04-13] MEDS: zolPIDEM TARTRATE 5 MG TAB PO PRN (20:06)
[2023-04-14 06:00] VITALS: BP 105/58; TEMP 98.1; O2SAT 93
[2023-04-14] MEDS: TIOTROPIUM INHALER/CAPSULE (SPIRIVA) INH SCH (08:04)
[2023-04-14] MEDS: SYMBICORT 160/4.5MCG INHALER 6GM INH SCH ×2 (08:06→19:27)
[2023-04-14] MEDS: IPRATROPIUM 0.5MG/ALBUTEROL 2.5MG INH SOL UD 3ML (DUONEB) NEB SCH ×2 (08:06→19:27)
[2023-04-14] MEDS: TAMSULOSIN 0.4 MG CAP PO SCH (08:40)
[2023-04-14] MEDS: LACTOBACILLUS ACIDOPHILUS CAP (BACID) PO SCH ×2 (08:40→18:27)
[2023-04-14] MEDS: OMEPRAZOLE 20MG CAP PO SCH ×2 (08:40→21:21)
[2023-04-14] MEDS: FINASTERIDE 5MG TAB PO SCH (08:40)
[2023-04-14] MEDS: ASPIRIN 81MG ENTERIC TABLET PO SCH (08:40)
[2023-04-14] MEDS: ursodioL 300MG CAP PO SCH ×2 (08:41→21:21)
[2023-04-14] MEDS: predniSONE 2.5 MG TAB PO SCH (08:41)
[2023-04-14] MEDS: ENOXAPARIN 40MG/0.4ML SYRINGE (J1650 PER 10MG) SC SCH (08:41)
[2023-04-14] MEDS: guaiFENesin ER 600 MG TAB PO SCH (08:41)
[2023-04-14] MEDS: CHOLESTYRAMINE 4GM PWD PKT PO SCH (11:20)
[2023-04-14] MEDS: zolPIDEM TARTRATE 5 MG TAB PO PRN (21:21)
[2023-04-15 06:00] VITALS: BP 117/60; TEMP 98.2; O2SAT 90
[2023-04-15] MEDS: TIOTROPIUM INHALER/CAPSULE (SPIRIVA) INH SCH (07:29)
[2023-04-15] MEDS: SYMBICORT 160/4.5MCG INHALER 6GM INH SCH ×2 (07:33→19:15)
[2023-04-15] MEDS: IPRATROPIUM 0.5MG/ALBUTEROL 2.5MG INH SOL UD 3ML (DUONEB) NEB SCH ×2 (07:34→19:15)
[2023-04-15] MEDS: guaiFENesin ER 600 MG TAB PO SCH (09:41)
[2023-04-15] MEDS: ursodioL 300MG CAP PO SCH ×2 (09:41→20:41)
[2023-04-15] MEDS: predniSONE 2.5 MG TAB PO SCH (09:41)
[2023-04-15] MEDS: ASPIRIN 81MG ENTERIC TABLET PO SCH (09:41)
[2023-04-15] MEDS: TAMSULOSIN 0.4 MG CAP PO SCH (09:41)
[2023-04-15] MEDS: ENOXAPARIN 40MG/0.4ML SYRINGE (J1650 PER 10MG) SC SCH (09:41)
[2023-04-15] MEDS: FINASTERIDE 5MG TAB PO SCH (09:41)
[2023-04-15] MEDS: CHOLESTYRAMINE 4GM PWD PKT PO SCH (09:41)
[2023-04-15] MEDS: OMEPRAZOLE 20MG CAP PO SCH ×2 (09:42→20:41)
[2023-04-15] MEDS: LACTOBACILLUS ACIDOPHILUS CAP (BACID) PO SCH ×2 (09:42→16:54)
[2023-04-15] MEDS: zolPIDEM TARTRATE 5 MG TAB PO PRN (20:41)
[2023-04-16 06:00] VITALS: BP 115/60; TEMP 98.4; O2SAT 92
[2023-04-16] MEDS: IPRATROPIUM 0.5MG/ALBUTEROL 2.5MG INH SOL UD 3ML (DUONEB) NEB SCH ×2 (07:18→20:45)
[2023-04-16] MEDS: SYMBICORT 160/4.5MCG INHALER 6GM INH SCH ×2 (07:19→20:44)
[2023-04-16] MEDS: TIOTROPIUM INHALER/CAPSULE (SPIRIVA) INH SCH (07:19)
[2023-04-16] MEDS: LACTOBACILLUS ACIDOPHILUS CAP (BACID) PO SCH ×2 (09:16→18:53)
[2023-04-16] MEDS: ursodioL 300MG CAP PO SCH ×2 (09:16→20:38)
[2023-04-16] MEDS: guaiFENesin ER 600 MG TAB PO SCH (09:16)
[2023-04-16] MEDS: FINASTERIDE 5MG TAB PO SCH (09:16)
[2023-04-16] MEDS: ASPIRIN 81MG ENTERIC TABLET PO SCH (09:16)
[2023-04-16] MEDS: TAMSULOSIN 0.4 MG CAP PO SCH (09:16)
[2023-04-16] MEDS: CHOLESTYRAMINE 4GM PWD PKT PO SCH (09:16)
[2023-04-16] MEDS: ENOXAPARIN 40MG/0.4ML SYRINGE (J1650 PER 10MG) SC SCH (09:17)
[2023-04-16] MEDS: predniSONE 2.5 MG TAB PO SCH (09:17)
[2023-04-16] MEDS: OMEPRAZOLE 20MG CAP PO SCH ×2 (09:17→20:38)
[2023-04-16] MEDS: ACETAMINOPHEN TAB 650MG DOSE (2X325MG) PO PRN ×2 (09:38→20:41)
[2023-04-16] MEDS: zolPIDEM TARTRATE 5 MG TAB PO PRN (20:41)
[2023-04-17 06:53] VITALS: BP 117/61; TEMP 97.9; O2SAT 97
[2023-04-17] MEDS: IPRATROPIUM 0.5MG/ALBUTEROL 2.5MG INH SOL UD 3ML (DUONEB) NEB SCH ×2 (07:07→19:41)
[2023-04-17] MEDS: SYMBICORT 160/4.5MCG INHALER 6GM INH SCH ×2 (07:07→19:41)
[2023-04-17] MEDS: TIOTROPIUM INHALER/CAPSULE (SPIRIVA) INH SCH (07:07)
[2023-04-17] MEDS: LACTOBACILLUS ACIDOPHILUS CAP (BACID) PO SCH ×2 (09:06→18:21)
[2023-04-17] MEDS: TAMSULOSIN 0.4 MG CAP PO SCH (09:06)
[2023-04-17] MEDS: ASPIRIN 81MG ENTERIC TABLET PO SCH (09:06)
[2023-04-17] MEDS: predniSONE 2.5 MG TAB PO SCH (09:06)
[2023-04-17] MEDS: OMEPRAZOLE 20MG CAP PO SCH ×2 (09:06→20:37)
[2023-04-17] MEDS: guaiFENesin ER 600 MG TAB PO SCH (09:06)
[2023-04-17] MEDS: ursodioL 300MG CAP PO SCH ×2 (09:06→20:37)
[2023-04-17] MEDS: FINASTERIDE 5MG TAB PO SCH (09:06)
[2023-04-17] MEDS: ENOXAPARIN 40MG/0.4ML SYRINGE (J1650 PER 10MG) SC SCH (09:07)
[2023-04-17] MEDS: ACETAMINOPHEN TAB 650MG DOSE (2X325MG) PO PRN (09:10)
[2023-04-17] MEDS: CHOLESTYRAMINE 4GM PWD PKT PO SCH (10:17)
[2023-04-17] MEDS: zolPIDEM TARTRATE 5 MG TAB PO PRN (20:39)
[2023-04-18 05:44] VITALS: BP 116/55; TEMP 98.4; O2SAT 94
[2023-04-18] MEDS: TIOTROPIUM INHALER/CAPSULE (SPIRIVA) INH SCH (07:49)
[2023-04-18] MEDS: IPRATROPIUM 0.5MG/ALBUTEROL 2.5MG INH SOL UD 3ML (DUONEB) NEB SCH (07:49)
[2023-04-18] MEDS: SYMBICORT 160/4.5MCG INHALER 6GM INH SCH (07:50)
[2023-04-18] MEDS: predniSONE 2.5 MG TAB PO SCH (09:28)
[2023-04-18] MEDS: guaiFENesin ER 600 MG TAB PO SCH (09:28)
[2023-04-18] MEDS: FINASTERIDE 5MG TAB PO SCH (09:28)
[2023-04-18] MEDS: ursodioL 300MG CAP PO SCH (09:28)
[2023-04-18] MEDS: LACTOBACILLUS ACIDOPHILUS CAP (BACID) PO SCH (09:28)
[2023-04-18] MEDS: TAMSULOSIN 0.4 MG CAP PO SCH (09:28)
[2023-04-18] MEDS: ASPIRIN 81MG ENTERIC TABLET PO SCH (09:28)
[2023-04-18] MEDS: OMEPRAZOLE 20MG CAP PO SCH (09:28)
[2023-04-18] MEDS: ENOXAPARIN 40MG/0.4ML SYRINGE (J1650 PER 10MG) SC SCH (09:29)
[2023-04-18] MEDS: CHOLESTYRAMINE 4GM PWD PKT PO SCH (10:39)
[2023-04-18] MEDS: ACETAMINOPHEN TAB 650MG DOSE (2X325MG) PO PRN (11:10)
[2023-04-18] MEDS ORDERED: NEBU1EAC78 MC (14:20)
[2023-04-18] MEDS ORDERED: SYMB16INH INH (14:20)
[2023-04-18] MEDS ORDERED: IPRA0.00 NEB (14:20)
[2023-04-18] MEDS ORDERED: ALBU8.5H PO (14:20)
== END 2023-04-18 16:00 | disposition home or self-care (01) | DRG 871 ==
LOC: M ED 11:10 → EDBD 11:10 → EEVIPCON 16:29 → M ED INP 16:29 → M ICU 17:49 → M PCU 04-07 03:03 → M MS4PR 04-07 22:46 → M MS5PR 04-14 16:24
PROVIDERS: ADMIT Internal Medicine Pulmonary Disease; ATTEND Family Medicine
DX: A41.9 Sepsis, unspecified organism (principal); J96.22 Acute and chronic respiratory failure with hypercapnia; R65.21 Severe sepsis with septic shock; J18.9 Pneumonia, unspecified organism; G93.41 Metabolic encephalopathy; J96.21 Acute and chronic respiratory failure with hypoxia; K56.7 Ileus, unspecified; E46 Unspecified protein-calorie malnutrition; N17.9 Acute kidney failure, unspecified; J44.1 Chronic obstructive pulmonary disease with (acute) exacerbation; J44.0 Chronic obstructive pulmonary disease with (acute) lower respiratory infection; E87.29 Other acidosis; G62.81 Critical illness polyneuropathy; E87.20 Acidosis, unspecified; N39.0 Urinary tract infection, site not specified; N30.90 Cystitis, unspecified without hematuria; Z99.81 Dependence on supplemental oxygen; D63.8 Anemia in other chronic diseases classified elsewhere; Z88.8 Allergy status to other drugs, medicaments and biological substances; Z79.899 Other long term (current) drug therapy; Z79.82 Long term (current) use of aspirin; Z79.52 Long term (current) use of systemic steroids; K29.80 Duodenitis without bleeding; R91.1 Solitary pulmonary nodule; L40.8 Other psoriasis; K21.9 Gastro-esophageal reflux disease without esophagitis

== ENCOUNTER 2023-08-26 20:05 | Inpatient (IN) | payer MEDICARE ==
[~2023-08-26] VITALS: Ht 188 cm; Wt 78.9 kg
[~2023-08-26 20:05] MED LIST changes: +ALBU8.5H INH; +ALBU8.5H PO; +AMOX875T PO; +ASPI-161 PO; +BACTDSTA PO; +CHOL378P3 PO; +CHOL4POW26 PO; +CIMZ200K SC; +D 1010002 PO; +ENTR1TAB PO; +FERR1TAB8 PO; +FINA5TAB2 PO; +IPRA0.00 INH; +IPRA0.00 NEB; +LACT10SO3 PO; +LACT20EL PO; +LEVO1TAB40 PO; +LOPE1CAP5 PO; +MAGN400C PO; +MAGN400C2 PO; +METO5TA PO; +MUCI600T31 PO; +NEBU1EAC78 MC; +OMEP40CA5 PO; +PRED10TA2 PO; +PRED20TA PO; +RISATAB3 PO; +SPIR1CAP INH; +SYMB16INH INH; +TAMS1CAP17 PO; +TORS10TA3 PO; +URSO300C3 PO; +VITA1CAP25 PO; +XIFA550T PO; +ZOLP5TAB PO
[2023-08-26] MEDS ORDERED: NS 2,620 ML in IV 1 EA IV ONE (20:40)
[2023-08-26 20:48] LABS: BASO % 0.4 % (0.0-1.0); EOS # 0.2 10^3/uL (0.0-0.5); EOS % 2.1 % (0.0-3.0); HEMATOCRIT 29.1 % (42.0-52.0); HEMOGLOBIN 8.4 g/dl (13.5-17.5); LYMPH # 0.6 10^3/uL (1.5-5.0); MEAN CORPUSCULAR HEMOGLOBIN 29.7 pg (27.0-33.0); MEAN CORPUSCULAR HGB CONC 28.9 g/dl (32.0-36.5); MEAN CORPUSCULAR VOLUME 102.8 fl (80.0-96.0); MONO # 0.4 10^3/uL (0.0-0.8); MONO % 3.3 % (2.0-8.0); NEUTROPHILS # 9.3 10^3/uL (1.5-8.5); NEUTROPHILS % 87.9 % (36.0-66.0); PLATELET COUNT, AUTOMATED 126 10^3/uL (150-450); RED BLOOD COUNT 2.83 10^6/uL (4.30-6.10); WHITE BLOOD COUNT 10.5 10^3/uL (4.0-10.0)
[2023-08-26 20:52] LABS: ABG BASE EXCESS 8.1 (-2.0-2.0); ABG HCO3 34.8 MMOL/L (22.0-26.0); ABG O2 SATURATION 96.5 % (95.0-99.0); ABG STANDARD HCO3 31.9 MMOL/L. (22.0-26.0); ABG TOTAL CO2 36.8 MMOL/L (23.0-31.0); ABG pH (ARTERIAL) 7.364 UNITS (7.350-7.450)
[2023-08-26 20:54] LABS: ABG PARTIAL PRESSURE CO2 62.5 mmHg (35.0-45.0)
[2023-08-26 21:12] LABS: ALBUMIN 2.1 G/DL (3.2-5.2); ALKALINE PHOSPHATASE 87 U/L (46-116); ALT/SGPT 21 U/L (7.0-40); AST/SGOT 19 U/L (<34); BILIRUBIN,DIRECT < 0.1 MG/DL (<0.4); BILIRUBIN,TOTAL 0.2 MG/DL (0.3-1.2); BLOOD UREA NITROGEN 29 MG/DL (9-23); CARBON DIOXIDE LEVEL 39 MMOL/L (20-31); CHLORIDE LEVEL 106 MMOL/L (98-107); CREATININE FOR GFR 1.14 MG/DL (0.70-1.30); GLOMERULAR FILTRATION RATE > 60.0 (>42); GLUCOSE, FASTING 106 MG/DL (74-106); POTASSIUM SERUM 5.1 MMOL/L (3.5-5.1); SODIUM LEVEL 145 MMOL/L (136-145); TOTAL PROTEIN 4.9 G/DL (5.7-8.2)
[2023-08-26 21:13] LABS: THYROXINE (T4) 6.3 UG/DL (4.5-10.9)
[2023-08-26 21:20] LABS: CK-MB VALUE MASS 4.8 NG/ML (<3.6)
[2023-08-26 21:25] LABS: THYROID STIMULATING HORMONE 1.401 uIU/ML (0.55-4.78)
[2023-08-26 21:26] LABS: CPK CREATINE PHOSPHOKINASE 58 U/L (46-171); MB/CK RELATIVE INDEX 8.27 (< OR =4)
[2023-08-26 21:29] LABS: PROCALCITONIN 0.26 ng/ml
[2023-08-26] MEDS ORDERED: PIPERACILLIN/TAZOBACTAM SOD 3.375 GM in D5W MINI-BAG PLUS 50 ML IV ONE (22:40)
[2023-08-26 22:51] LABS: CK-MB VALUE MASS 5.1 NG/ML (<3.6)
[2023-08-26 22:55] LABS: MB/CK RELATIVE INDEX 7.96 (< OR =4)
[2023-08-26] MEDS ORDERED: ONDANSETRON 4MG 2ML VIAL IV PRN (23:35)
[2023-08-26] MEDS ORDERED: MAGN400T33 PO (23:47)
[2023-08-26] MEDS ORDERED: THERTAB52 PO (23:47)
[2023-08-26] MEDS ORDERED: ASPI81TA26 PO (23:47)
[2023-08-26] MEDS ORDERED: HOME MED LIST COMPLETE! XX SCH (23:50)
[2023-08-27] VITALS (15 sets, daily range): BP systolic 86–116; BP diastolic 50–64; TEMP 98.1–98.6; O2SAT 92–98
[2023-08-27 00:34] LABS: VITAMIN B12 LEVEL 402 PG/ML (211-911)
[2023-08-27] MEDS ORDERED: methylPREDNISolone 40MG 1ML VIAL IV SCH (01:00)
[2023-08-27] MEDS ORDERED: ALBUTEROL SULFATE 2.5MG/0.5ML INH NEB SOLN NEB ONE (01:05)
[2023-08-27] MEDS: IPRATROPIUM 0.5MG/ALBUTEROL 2.5MG INH SOL UD 3ML (DUONEB) NEB SCH ×4 (01:37→19:13)
[2023-08-27] MEDS: MEROPENEM INJ 1 GM in IV 1 EA IV SCH ×2 (01:42→10:16)
[2023-08-27] MEDS: AMPICILLIN SOD IV SCH ×2 (05:17→10:57)
[2023-08-27] MEDS: D5W MINI IV SCH ×2 (05:17→10:57)
[2023-08-27] MEDS: HEPARIN SOD (PORCINE) 5000UNITS/ML 1ML VIAL/SYRINGE SC SCH ×3 (05:17→22:45)
[2023-08-27 05:33] LABS: BLOOD UREA NITROGEN 31 MG/DL (9-23); CALCIUM LEVEL 8.2 MG/DL (8.3-10.6); CARBON DIOXIDE LEVEL 32 MMOL/L (20-31); CHLORIDE LEVEL 106 MMOL/L (98-107); CREATININE FOR GFR 1.07 MG/DL (0.70-1.30); GLOMERULAR FILTRATION RATE > 60.0 (>42); GLUCOSE, FASTING 284 MG/DL (74-106); POTASSIUM SERUM 5.3 MMOL/L (3.5-5.1); SODIUM LEVEL 142 MMOL/L (136-145)
[2023-08-27 10:23] LABS: MAGNESIUM LEVEL 1.7 MG/DL (1.8-2.4)
[2023-08-27 10:26] LABS: BASO % 0.1 % (0.0-1.0); EOS % 0.1 % (0.0-3.0); HEMATOCRIT 30.3 % (42.0-52.0); HEMOGLOBIN 8.6 g/dl (13.5-17.5); LYMPH # 0.3 10^3/uL (1.5-5.0); LYMPH % 2.2 % (24.0-44.0); MEAN CORPUSCULAR HEMOGLOBIN 29.3 pg (27.0-33.0); MEAN CORPUSCULAR HGB CONC 28.4 g/dl (32.0-36.5); MEAN CORPUSCULAR VOLUME 103.1 fl (80.0-96.0); MONO # 0.1 10^3/uL (0.0-0.8); MONO % 0.9 % (2.0-8.0); NEUTROPHILS # 12.2 10^3/uL (1.5-8.5); NEUTROPHILS % 96.2 % (36.0-66.0); PLATELET COUNT, AUTOMATED 130 10^3/uL (150-450); RED BLOOD COUNT 2.94 10^6/uL (4.30-6.10); WHITE BLOOD COUNT 12.6 10^3/uL (4.0-10.0)
[2023-08-27] MEDS: ASPIRIN 81MG ENTERIC TABLET PO SCH (10:57)
[2023-08-27] MEDS: TAMSULOSIN 0.4 MG CAP PO SCH (10:57)
[2023-08-27] MEDS: MAGNESIUM OXIDE 400MG TAB (MAG-OX) PO SCH (10:57)
[2023-08-27] MEDS: rifAXIMin 550 MG TAB (XIFAXAN) PO SCH (10:58)
[2023-08-27] MEDS: FINASTERIDE 5MG TAB PO SCH (10:58)
[2023-08-27] MEDS ORDERED: PATIROMER SORBITEX CALCIUM 8.4 GM POWDER PACKET (VELTASSA) PO ONE (12:00)
[2023-08-27] MEDS ORDERED: LOPERAMIDE 2 MG CAPLET PO SCH (12:00)
[2023-08-27] MEDS: methylPREDNISolone 40MG 1ML VIAL IV SCH (12:47)
[2023-08-27] MEDS ORDERED: FUROSEMIDE 20MG/2ML VIAL IV ONE (16:25)
[2023-08-27] MEDS ORDERED: DEXTROSE 50% 50ML SYRINGE IV PRN (16:40)
[2023-08-27] MEDS ORDERED: GLUCOSE 4GM CHEW TABLET PO PRN (16:40)
[2023-08-27] MEDS ORDERED: GLUCAGON INJ 1MG VIAL SC PRN (16:40)
[2023-08-27] MEDS: ursodioL 300MG CAP PO SCH ×2 (17:26→20:36)
[2023-08-27] MEDS: ERTAPENEM SODIUM 1 GM in NS MINI-BAG PLUS 50 ML IV SCH (17:27)
[2023-08-27] MEDS: INSULIN LISPRO (NovoLOG) PER UNIT SC SCH ×2 (17:30→20:37)
[2023-08-27] MEDS: SYMBICORT 160/4.5MCG INHALER 6GM INH SCH (19:13)
[2023-08-27] MEDS: LACTULOSE 20GM/30ML SYRUP UDC PO SCH ×2 (20:36→20:42)
[2023-08-28] VITALS (8 sets, daily range): BP systolic 102–156; BP diastolic 53–81; TEMP 97.5–99.4; O2SAT 90–99
[2023-08-28] MEDS: IPRATROPIUM 0.5MG/ALBUTEROL 2.5MG INH SOL UD 3ML (DUONEB) NEB SCH ×4 (01:08→20:02)
[2023-08-28] MEDS: methylPREDNISolone 40MG 1ML VIAL IV SCH ×2 (01:34→14:59)
[2023-08-28 05:24] LABS: BASO % 0.1 % (0.0-1.0); HEMATOCRIT 28.7 % (42.0-52.0); HEMOGLOBIN 8.2 g/dl (13.5-17.5); LYMPH # 0.7 10^3/uL (1.5-5.0); LYMPH % 5.4 % (24.0-44.0); MEAN CORPUSCULAR HEMOGLOBIN 28.9 pg (27.0-33.0); MEAN CORPUSCULAR HGB CONC 28.6 g/dl (32.0-36.5); MEAN CORPUSCULAR VOLUME 101.1 fl (80.0-96.0); MONO # 0.4 10^3/uL (0.0-0.8); MONO % 2.9 % (2.0-8.0); NEUTROPHILS # 11.4 10^3/uL (1.5-8.5); NEUTROPHILS % 91.2 % (36.0-66.0); PLATELET COUNT, AUTOMATED 126 10^3/uL (150-450); RED BLOOD COUNT 2.84 10^6/uL (4.30-6.10); WHITE BLOOD COUNT 12.5 10^3/uL (4.0-10.0)
[2023-08-28 05:41] LABS: BLOOD UREA NITROGEN 32 MG/DL (9-23); CALCIUM LEVEL 8.5 MG/DL (8.3-10.6); CARBON DIOXIDE LEVEL 36 MMOL/L (20-31); CHLORIDE LEVEL 106 MMOL/L (98-107); CREATININE FOR GFR 1.01 MG/DL (0.70-1.30); GLOMERULAR FILTRATION RATE > 60.0 (>42); GLUCOSE, FASTING 196 MG/DL (74-106); MAGNESIUM LEVEL 1.8 MG/DL (1.8-2.4); POTASSIUM SERUM 4.9 MMOL/L (3.5-5.1); SODIUM LEVEL 141 MMOL/L (136-145)
[2023-08-28] MEDS: HEPARIN SOD (PORCINE) 5000UNITS/ML 1ML VIAL/SYRINGE SC SCH ×3 (06:00→21:36)
[2023-08-28] MEDS: LACTULOSE 20GM/30ML SYRUP UDC PO SCH ×2 (08:10→08:12)
[2023-08-28] MEDS: FINASTERIDE 5MG TAB PO SCH (08:10)
[2023-08-28] MEDS: ACETAMINOPHEN TAB 650MG DOSE (2X325MG) PO PRN (08:10)
[2023-08-28] MEDS: INSULIN LISPRO (NovoLOG) PER UNIT SC SCH ×4 (08:10→21:00)
[2023-08-28] MEDS: rifAXIMin 550 MG TAB (XIFAXAN) PO SCH (08:10)
[2023-08-28] MEDS: ASPIRIN 81MG ENTERIC TABLET PO SCH (08:10)
[2023-08-28] MEDS: MAGNESIUM OXIDE 400MG TAB (MAG-OX) PO SCH (08:11)
[2023-08-28] MEDS: TAMSULOSIN 0.4 MG CAP PO SCH (08:11)
[2023-08-28] MEDS: SYMBICORT 160/4.5MCG INHALER 6GM INH SCH ×2 (08:43→20:02)
[2023-08-28] MEDS: TIOTROPIUM INHALER/CAPSULE (SPIRIVA) INH SCH (08:43)
[2023-08-28] MEDS: ursodioL 300MG CAP PO SCH ×3 (09:00→21:36)
[2023-08-28] MEDS ORDERED: MIRALAX *UNIT DOSE* 17GM PACKET PO PRN (10:40)
[2023-08-28] MEDS ORDERED: MOM 30ML SUSPENSION UDC PO PRN (10:40)
[2023-08-28] MEDS: SENOKOT S TAB PO SCH ×2 (11:55→21:00)
[2023-08-28] MEDS: ERTAPENEM SODIUM 1 GM in NS MINI-BAG PLUS 50 ML IV SCH (18:29)
[2023-08-29] MEDS: methylPREDNISolone 40MG 1ML VIAL IV SCH ×2 (00:42→13:01)
[2023-08-29] MEDS: IPRATROPIUM 0.5MG/ALBUTEROL 2.5MG INH SOL UD 3ML (DUONEB) NEB SCH ×4 (01:15→19:57)
[2023-08-29 04:20] VITALS: BP 126/58; TEMP 98; O2SAT 97
[2023-08-29] MEDS: HEPARIN SOD (PORCINE) 5000UNITS/ML 1ML VIAL/SYRINGE SC SCH ×3 (05:25→21:12)
[2023-08-29 05:51] LABS: HEMATOCRIT 26.5 % (42.0-52.0); HEMOGLOBIN 7.8 g/dl (13.5-17.5); LYMPH # 0.6 10^3/uL (1.5-5.0); LYMPH % 5.6 % (24.0-44.0); MEAN CORPUSCULAR HEMOGLOBIN 29.4 pg (27.0-33.0); MEAN CORPUSCULAR HGB CONC 29.4 g/dl (32.0-36.5); MONO # 0.2 10^3/uL (0.0-0.8); MONO % 1.8 % (2.0-8.0); NEUTROPHILS # 9.1 10^3/uL (1.5-8.5); PLATELET COUNT, AUTOMATED 105 10^3/uL (150-450); RED BLOOD COUNT 2.65 10^6/uL (4.30-6.10); WHITE BLOOD COUNT 9.9 10^3/uL (4.0-10.0)
[2023-08-29 06:04] LABS: BLOOD UREA NITROGEN 30 MG/DL (9-23); CALCIUM LEVEL 8.5 MG/DL (8.3-10.6); CARBON DIOXIDE LEVEL 36 MMOL/L (20-31); CHLORIDE LEVEL 106 MMOL/L (98-107); GLOMERULAR FILTRATION RATE > 60.0 (>42); GLUCOSE, FASTING 260 MG/DL (74-106); MAGNESIUM LEVEL 1.8 MG/DL (1.8-2.4); POTASSIUM SERUM 5.1 MMOL/L (3.5-5.1); SODIUM LEVEL 143 MMOL/L (136-145)
[2023-08-29] MEDS: SYMBICORT 160/4.5MCG INHALER 6GM INH SCH ×2 (07:21→19:57)
[2023-08-29] MEDS: TIOTROPIUM INHALER/CAPSULE (SPIRIVA) INH SCH (07:21)
[2023-08-29 08:00] VITALS: BP 113/58; TEMP 98.9; O2SAT 97
[2023-08-29] MEDS: SENOKOT S TAB PO SCH (08:13)
[2023-08-29] MEDS: INSULIN LISPRO (NovoLOG) PER UNIT SC SCH ×4 (08:45→20:27)
[2023-08-29] MEDS: MAGNESIUM OXIDE 400MG TAB (MAG-OX) PO SCH (08:45)
[2023-08-29] MEDS: ASPIRIN 81MG ENTERIC TABLET PO SCH (08:45)
[2023-08-29] MEDS: FINASTERIDE 5MG TAB PO SCH (08:45)
[2023-08-29] MEDS: rifAXIMin 550 MG TAB (XIFAXAN) PO SCH (08:45)
[2023-08-29] MEDS: TAMSULOSIN 0.4 MG CAP PO SCH (08:45)
[2023-08-29] MEDS: ursodioL 300MG CAP PO SCH ×3 (08:45→21:11)
[2023-08-29] MEDS: LOPERAMIDE 2 MG CAPLET PO SCH ×4 (08:48→21:11)
[2023-08-29 09:41] LABS: FOLATE 15.25 NG/ML (>5.4)
[2023-08-29 10:27] LABS: PERCENT SATURATION 12.7 % (19.7-50.0)
[2023-08-29] MEDS: ALBUTEROL SULFATE 2.5MG/0.5ML INH NEB SOLN NEB PRN ×2 (10:42→21:19)
[2023-08-29 11:34] VITALS: BP 108/55; TEMP 98.3; O2SAT 97
[2023-08-29] MEDS: FERROUS SULFATE 325MG TAB PO SCH (12:04)
[2023-08-29] MEDS ORDERED: FERRIC CARBOXYMALTOSE INJ 750 MG, VIAL MATE ADAPTER 1 EACH in NS 250 ML IV ONE (13:00)
[2023-08-29 13:09] VITALS: BP 108/55; TEMP 98.5; O2SAT 96
[2023-08-29 15:32] VITALS: BP 114/58; TEMP 97.8; O2SAT 95
[2023-08-29] MEDS: ERTAPENEM SODIUM 1 GM in NS MINI-BAG PLUS 50 ML IV SCH (17:20)
[2023-08-29 20:17] VITALS: BP 117/56; TEMP 98.2; O2SAT 96
[2023-08-30 00:20] VITALS: BP 121/70; TEMP 98; O2SAT 95
[2023-08-30] MEDS: methylPREDNISolone 40MG 1ML VIAL IV SCH (00:30)
[2023-08-30] MEDS: IPRATROPIUM 0.5MG/ALBUTEROL 2.5MG INH SOL UD 3ML (DUONEB) NEB SCH ×4 (02:41→20:08)
[2023-08-30 04:30] VITALS: BP 126/64; TEMP 98.1; O2SAT 95
[2023-08-30 04:49] LABS: BASO % 0.1 % (0.0-1.0); HEMATOCRIT 26.8 % (42.0-52.0); HEMOGLOBIN 7.9 g/dl (13.5-17.5); LYMPH # 0.4 10^3/uL (1.5-5.0); LYMPH % 3.8 % (24.0-44.0); MEAN CORPUSCULAR HEMOGLOBIN 29.4 pg (27.0-33.0); MEAN CORPUSCULAR HGB CONC 29.5 g/dl (32.0-36.5); MEAN CORPUSCULAR VOLUME 99.6 fl (80.0-96.0); MONO # 0.4 10^3/uL (0.0-0.8); MONO % 3.7 % (2.0-8.0); NEUTROPHILS # 10.1 10^3/uL (1.5-8.5); PLATELET COUNT, AUTOMATED 104 10^3/uL (150-450); RED BLOOD COUNT 2.69 10^6/uL (4.30-6.10); WHITE BLOOD COUNT 11.1 10^3/uL (4.0-10.0)
[2023-08-30 05:20] LABS: BLOOD UREA NITROGEN 28 MG/DL (9-23); CALCIUM LEVEL 8.3 MG/DL (8.3-10.6); CARBON DIOXIDE LEVEL 37 MMOL/L (20-31); CHLORIDE LEVEL 106 MMOL/L (98-107); CREATININE FOR GFR 1.04 MG/DL (0.70-1.30); GLOMERULAR FILTRATION RATE > 60.0 (>42); GLUCOSE, FASTING 202 MG/DL (74-106); MAGNESIUM LEVEL 1.8 MG/DL (1.8-2.4); POTASSIUM SERUM 5.2 MMOL/L (3.5-5.1); SODIUM LEVEL 143 MMOL/L (136-145)
[2023-08-30] MEDS: HEPARIN SOD (PORCINE) 5000UNITS/ML 1ML VIAL/SYRINGE SC SCH ×3 (05:44→22:27)
[2023-08-30] MEDS: SYMBICORT 160/4.5MCG INHALER 6GM INH SCH ×2 (07:25→20:08)
[2023-08-30] MEDS: TIOTROPIUM INHALER/CAPSULE (SPIRIVA) INH SCH (07:25)
[2023-08-30 07:39] VITALS: BP 115/59; TEMP 97.1; O2SAT 98
[2023-08-30] MEDS: ASPIRIN 81MG ENTERIC TABLET PO SCH (08:39)
[2023-08-30] MEDS: LOPERAMIDE 2 MG CAPLET PO SCH ×4 (08:40→22:26)
[2023-08-30] MEDS: TAMSULOSIN 0.4 MG CAP PO SCH (08:40)
[2023-08-30] MEDS: ursodioL 300MG CAP PO SCH ×3 (08:40→22:26)
[2023-08-30] MEDS: ACETAMINOPHEN TAB 650MG DOSE (2X325MG) PO PRN (08:40)
[2023-08-30] MEDS: rifAXIMin 550 MG TAB (XIFAXAN) PO SCH (08:40)
[2023-08-30] MEDS: FINASTERIDE 5MG TAB PO SCH (08:40)
[2023-08-30] MEDS: MAGNESIUM OXIDE 400MG TAB (MAG-OX) PO SCH (08:40)
[2023-08-30] MEDS: INSULIN LISPRO (NovoLOG) PER UNIT SC SCH ×4 (08:41→21:00)
[2023-08-30] MEDS: ALBUTEROL SULFATE 2.5MG/0.5ML INH NEB SOLN NEB PRN (11:01)
[2023-08-30] MEDS ORDERED: PATIROMER SORBITEX CALCIUM 8.4 GM POWDER PACKET (VELTASSA) PO ONE (12:00)
[2023-08-30] MEDS: predniSONE 10MG TAB PO SCH (12:52)
[2023-08-30] MEDS: OMEPRAZOLE 20MG CAP PO SCH (12:52)
[2023-08-30 15:44] VITALS: BP 127/60; TEMP 97.4; O2SAT 99
[2023-08-30] MEDS: ERTAPENEM SODIUM 1 GM in NS MINI-BAG PLUS 50 ML IV SCH (18:02)
[2023-08-30 19:36] VITALS: BP 136/55; TEMP 97.4; O2SAT 98
[2023-08-31] VITALS (8 sets, daily range): BP systolic 104–140; BP diastolic 57–85; TEMP 97.9–99.6; O2SAT 76–98
[2023-08-31] MEDS: IPRATROPIUM 0.5MG/ALBUTEROL 2.5MG INH SOL UD 3ML (DUONEB) NEB SCH ×4 (00:35→19:37)
[2023-08-31] MEDS: ALBUTEROL SULFATE 2.5MG/0.5ML INH NEB SOLN NEB PRN (04:40)
[2023-08-31] MEDS: HEPARIN SOD (PORCINE) 5000UNITS/ML 1ML VIAL/SYRINGE SC SCH ×3 (05:22→21:31)
[2023-08-31] MEDS: INSULIN LISPRO (NovoLOG) PER UNIT SC SCH ×4 (07:30→20:53)
[2023-08-31] MEDS: LOPERAMIDE 2 MG CAPLET PO SCH ×2 (07:30→11:55)
[2023-08-31] MEDS: SYMBICORT 160/4.5MCG INHALER 6GM INH SCH ×2 (07:30→19:39)
[2023-08-31] MEDS: TIOTROPIUM INHALER/CAPSULE (SPIRIVA) INH SCH (07:31)
[2023-08-31 07:42] LABS: BASO % 0.1 % (0.0-1.0); EOS % 0.1 % (0.0-3.0); HEMATOCRIT 29.1 % (42.0-52.0); HEMOGLOBIN 8.3 g/dl (13.5-17.5); LYMPH # 1.1 10^3/uL (1.5-5.0); LYMPH % 6.7 % (24.0-44.0); MEAN CORPUSCULAR HEMOGLOBIN 29.4 pg (27.0-33.0); MEAN CORPUSCULAR HGB CONC 28.5 g/dl (32.0-36.5); MEAN CORPUSCULAR VOLUME 103.2 fl (80.0-96.0); MONO # 1.1 10^3/uL (0.0-0.8); NEUTROPHILS # 13.3 10^3/uL (1.5-8.5); NEUTROPHILS % 84.3 % (36.0-66.0); PLATELET COUNT, AUTOMATED 116 10^3/uL (150-450); RED BLOOD COUNT 2.82 10^6/uL (4.30-6.10); WHITE BLOOD COUNT 15.8 10^3/uL (4.0-10.0)
[2023-08-31 08:01] LABS: BLOOD UREA NITROGEN 25 MG/DL (9-23); CALCIUM LEVEL 8.5 MG/DL (8.3-10.6); CARBON DIOXIDE LEVEL 35 MMOL/L (20-31); CHLORIDE LEVEL 107 MMOL/L (98-107); CREATININE FOR GFR 1.08 MG/DL (0.70-1.30); GLOMERULAR FILTRATION RATE > 60.0 (>42); GLUCOSE, FASTING 118 MG/DL (74-106); MAGNESIUM LEVEL 2.1 MG/DL (1.8-2.4); POTASSIUM SERUM 4.6 MMOL/L (3.5-5.1); SODIUM LEVEL 141 MMOL/L (136-145)
[2023-08-31] MEDS ORDERED: AMOXICILLIN 875 MG TAB PO SCH (09:00)
[2023-08-31 09:42] LABS: C REACTIVE PROTEIN QUANTITATIV < 0.40 MG/DL (<1.0)
[2023-08-31 09:44] LABS: C REACTIVE PROTEIN QUANTITATIV < 0.40 MG/DL (<1.0)
[2023-08-31] MEDS: ASPIRIN 81MG ENTERIC TABLET PO SCH (10:37)
[2023-08-31] MEDS: predniSONE 10MG TAB PO SCH (10:37)
[2023-08-31] MEDS: FINASTERIDE 5MG TAB PO SCH (10:37)
[2023-08-31] MEDS: MAGNESIUM OXIDE 400MG TAB (MAG-OX) PO SCH (10:37)
[2023-08-31] MEDS: TAMSULOSIN 0.4 MG CAP PO SCH (10:38)
[2023-08-31] MEDS: OMEPRAZOLE 20MG CAP PO SCH (10:38)
[2023-08-31] MEDS: rifAXIMin 550 MG TAB (XIFAXAN) PO SCH (10:38)
[2023-08-31] MEDS: ursodioL 300MG CAP PO SCH ×3 (10:38→21:31)
[2023-08-31] MEDS: FERROUS SULFATE 325MG TAB PO SCH (10:39)
[2023-08-31 12:35] LABS: LIPASE 38 U/L (12-53)
[2023-08-31 12:37] LABS: AMYLASE 70 U/L (30-118)
[2023-08-31 13:30] LABS: ABG BASE EXCESS 5.9 (-2.0-2.0); ABG HCO3 38.8 MMOL/L (22.0-26.0); ABG O2 SATURATION 97.7 % (95.0-99.0); ABG PARTIAL PRESSURE O2 130.7 mmHg (75.0-100.0); ABG STANDARD HCO3 29.8 MMOL/L. (22.0-26.0); ABG TOTAL CO2 42.9 MMOL/L (23.0-31.0)
[2023-08-31 13:36] LABS: ABG PARTIAL PRESSURE CO2 132.5 mmHg (35.0-45.0); ABG pH (ARTERIAL) 7.085 UNITS (7.350-7.450)
[2023-08-31 13:43] LABS: BASO % 0.2 % (0.0-1.0); EOS # 0.1 10^3/uL (0.0-0.5); EOS % 0.4 % (0.0-3.0); HEMATOCRIT 33.8 % (42.0-52.0); HEMOGLOBIN 9.5 g/dl (13.5-17.5); LYMPH # 2.2 10^3/uL (1.5-5.0); LYMPH % 8.3 % (24.0-44.0); MEAN CORPUSCULAR HEMOGLOBIN 29.7 pg (27.0-33.0); MEAN CORPUSCULAR HGB CONC 28.1 g/dl (32.0-36.5); MEAN CORPUSCULAR VOLUME 105.6 fl (80.0-96.0); MONO # 2.5 10^3/uL (0.0-0.8); MONO % 9.5 % (2.0-8.0); NEUTROPHILS # 20.7 10^3/uL (1.5-8.5); NEUTROPHILS % 78.6 % (36.0-66.0); PLATELET COUNT, AUTOMATED 182 10^3/uL (150-450); WHITE BLOOD COUNT 26.4 10^3/uL (4.0-10.0)
[2023-08-31 14:02] LABS: ALBUMIN 2.7 G/DL (3.2-5.2); ALKALINE PHOSPHATASE 75 U/L (46-116); ALT/SGPT 20 U/L (7.0-40); AST/SGOT 17 U/L (<34); BILIRUBIN,TOTAL 0.3 MG/DL (0.3-1.2); BLOOD UREA NITROGEN 26 MG/DL (9-23); CALCIUM LEVEL 9.5 MG/DL (8.3-10.6); CARBON DIOXIDE LEVEL 38 MMOL/L (20-31); CHLORIDE LEVEL 107 MMOL/L (98-107); GLOMERULAR FILTRATION RATE > 60.0 (>42); GLUCOSE, FASTING 136 MG/DL (74-106); POTASSIUM SERUM 4.9 MMOL/L (3.5-5.1); SODIUM LEVEL 145 MMOL/L (136-145); TOTAL PROTEIN 5.9 G/DL (5.7-8.2)
[2023-08-31 14:51] LABS: CK-MB VALUE MASS 1.7 NG/ML (<3.6); MB/CK RELATIVE INDEX 5.15 (< OR =4)
[2023-08-31 15:16] LABS: PROCALCITONIN 0.24 ng/ml
[2023-08-31] MEDS: PANTOPRAZOLE 40MG VIAL IV SCH (15:51)
[2023-08-31] MEDS: methylPREDNISolone 40MG 1ML VIAL IV SCH ×2 (15:51→21:31)
[2023-08-31 16:47] LABS: VENOUS PARTIAL PRESSURE CO2 77.1 mmHg (38.0-50.0); VENOUS PH 7.261 UNITS (7.330-7.430)
[2023-08-31 16:48] LABS: VENOUS O2 SATURATION 98.9 % (60.0-80.0); VENOUS PARTIAL PRESSURE O2 173.9 mmHg (30.0-50.0); VENOUS TOTAL CO2 36.3 MMOL/L (24.0-28.0)
[2023-08-31] MEDS ORDERED: ISOVUE-370 76% 100ML VIAL As Ordered ONE (20:23)
[2023-09-01] VITALS (16 sets, daily range): BP systolic 103–125; BP diastolic 55–68; TEMP 97.6–98.9; O2SAT 90–98
[2023-09-01] MEDS: IPRATROPIUM 0.5MG/ALBUTEROL 2.5MG INH SOL UD 3ML (DUONEB) NEB SCH ×4 (01:35→18:55)
[2023-09-01 05:05] LABS: VENOUS BASE EXCESS 7.9 (-2.0-2.0); VENOUS HCO3 36.6 MMOL/L (23.0-27.0); VENOUS O2 SATURATION 68.8 % (60.0-80.0); VENOUS PARTIAL PRESSURE CO2 81.2 mmHg (38.0-50.0); VENOUS PH 7.272 UNITS (7.330-7.430); VENOUS STANDARD HCO3 31.2 MMOL/L; VENOUS TOTAL CO2 39.1 MMOL/L (24.0-28.0)
[2023-09-01 05:13] LABS: BASO % 0.1 % (0.0-1.0); EOS % 0.1 % (0.0-3.0); HEMOGLOBIN 8.2 g/dl (13.5-17.5); LYMPH # 0.6 10^3/uL (1.5-5.0); LYMPH % 2.8 % (24.0-44.0); MEAN CORPUSCULAR HEMOGLOBIN 29.5 pg (27.0-33.0); MEAN CORPUSCULAR HGB CONC 28.3 g/dl (32.0-36.5); MEAN CORPUSCULAR VOLUME 104.3 fl (80.0-96.0); MONO # 0.5 10^3/uL (0.0-0.8); MONO % 2.5 % (2.0-8.0); NEUTROPHILS # 18.5 10^3/uL (1.5-8.5); NEUTROPHILS % 93.5 % (36.0-66.0); PLATELET COUNT, AUTOMATED 118 10^3/uL (150-450); RED BLOOD COUNT 2.78 10^6/uL (4.30-6.10); WHITE BLOOD COUNT 19.7 10^3/uL (4.0-10.0)
[2023-09-01 05:41] LABS: ALBUMIN 2.3 G/DL (3.2-5.2); ALKALINE PHOSPHATASE 59 U/L (46-116); ALT/SGPT 18 U/L (7.0-40); AST/SGOT 15 U/L (<34); BILIRUBIN,TOTAL 0.2 MG/DL (0.3-1.2); BLOOD UREA NITROGEN 31 MG/DL (9-23); CALCIUM LEVEL 9.4 MG/DL (8.3-10.6); CARBON DIOXIDE LEVEL 38 MMOL/L (20-31); CHLORIDE LEVEL 106 MMOL/L (98-107); CREATININE FOR GFR 1.22 MG/DL (0.70-1.30); GLOMERULAR FILTRATION RATE > 60.0 (>42); GLUCOSE, FASTING 148 MG/DL (74-106); POTASSIUM SERUM 5.4 MMOL/L (3.5-5.1); SODIUM LEVEL 140 MMOL/L (136-145); TOTAL PROTEIN 5.3 G/DL (5.7-8.2)
[2023-09-01] MEDS: methylPREDNISolone 40MG 1ML VIAL IV SCH ×3 (06:28→22:10)
[2023-09-01] MEDS: HEPARIN SOD (PORCINE) 5000UNITS/ML 1ML VIAL/SYRINGE SC SCH ×3 (06:28→22:10)
[2023-09-01] MEDS: INSULIN LISPRO (NovoLOG) PER UNIT SC SCH ×4 (07:30→21:00)
[2023-09-01] MEDS: TIOTROPIUM INHALER/CAPSULE (SPIRIVA) INH SCH (07:47)
[2023-09-01] MEDS: SYMBICORT 160/4.5MCG INHALER 6GM INH SCH ×2 (07:48→18:55)
[2023-09-01] MEDS: FINASTERIDE 5MG TAB PO SCH (08:12)
[2023-09-01] MEDS: ASPIRIN 81MG ENTERIC TABLET PO SCH (08:12)
[2023-09-01] MEDS: MAGNESIUM OXIDE 400MG TAB (MAG-OX) PO SCH (08:13)
[2023-09-01] MEDS: rifAXIMin 550 MG TAB (XIFAXAN) PO SCH (08:13)
[2023-09-01] MEDS: ursodioL 300MG CAP PO SCH ×3 (08:13→20:34)
[2023-09-01] MEDS: TAMSULOSIN 0.4 MG CAP PO SCH (08:13)
[2023-09-01 14:34] LABS: ABG BASE EXCESS 9.2 (-2.0-2.0); ABG HCO3 34.1 MMOL/L (22.0-26.0); ABG O2 SATURATION 96.2 % (95.0-99.0); ABG PARTIAL PRESSURE CO2 49.4 mmHg (35.0-45.0); ABG PARTIAL PRESSURE O2 82.9 mmHg (75.0-100.0); ABG STANDARD HCO3 32.9 MMOL/L. (22.0-26.0); ABG TOTAL CO2 35.6 MMOL/L (23.0-31.0); ABG pH (ARTERIAL) 7.457 UNITS (7.350-7.450)
[2023-09-01] MEDS: PANTOPRAZOLE 40MG VIAL IV SCH (15:07)
[2023-09-01 16:24] LABS: PROCALCITONIN 0.54 ng/ml
[2023-09-01] MEDS ORDERED: SENNA 8.6 MG TAB (SENOKOT) PO PRN (20:55)
[2023-09-02] VITALS (15 sets, daily range): BP systolic 107–130; BP diastolic 53–67; TEMP 97.6–98.9; O2SAT 89–97
[2023-09-02] MEDS: IPRATROPIUM 0.5MG/ALBUTEROL 2.5MG INH SOL UD 3ML (DUONEB) NEB SCH ×4 (01:23→19:08)
[2023-09-02] MEDS: HEPARIN SOD (PORCINE) 5000UNITS/ML 1ML VIAL/SYRINGE SC SCH ×3 (05:57→22:28)
[2023-09-02] MEDS: methylPREDNISolone 40MG 1ML VIAL IV SCH ×3 (05:58→22:28)
[2023-09-02 06:17] LABS: HEMATOCRIT 26.2 % (42.0-52.0); HEMOGLOBIN 7.8 g/dl (13.5-17.5); MEAN CORPUSCULAR HEMOGLOBIN 30.4 pg (27.0-33.0); MEAN CORPUSCULAR HGB CONC 29.8 g/dl (32.0-36.5); MEAN CORPUSCULAR VOLUME 101.9 fl (80.0-96.0); PLATELET COUNT, AUTOMATED 117 10^3/uL (150-450); RED BLOOD COUNT 2.57 10^6/uL (4.30-6.10)
[2023-09-02 06:53] LABS: BLOOD UREA NITROGEN 36 MG/DL (9-23); CALCIUM LEVEL 9.3 MG/DL (8.3-10.6); CARBON DIOXIDE LEVEL 38 MMOL/L (20-31); CHLORIDE LEVEL 104 MMOL/L (98-107); CREATININE FOR GFR 0.96 MG/DL (0.70-1.30); GLOMERULAR FILTRATION RATE > 60.0 (>42); GLUCOSE, FASTING 91 MG/DL (74-106); POTASSIUM SERUM 4.9 MMOL/L (3.5-5.1); SODIUM LEVEL 142 MMOL/L (136-145)
[2023-09-02] MEDS: INSULIN LISPRO (NovoLOG) PER UNIT SC SCH ×4 (07:30→20:34)
[2023-09-02] MEDS: SYMBICORT 160/4.5MCG INHALER 6GM INH SCH ×2 (07:31→19:08)
[2023-09-02] MEDS: TIOTROPIUM INHALER/CAPSULE (SPIRIVA) INH SCH (07:31)
[2023-09-02] MEDS: ASPIRIN 81MG ENTERIC TABLET PO SCH (08:50)
[2023-09-02] MEDS: ursodioL 300MG CAP PO SCH ×3 (08:50→20:29)
[2023-09-02] MEDS: TAMSULOSIN 0.4 MG CAP PO SCH (08:51)
[2023-09-02] MEDS: rifAXIMin 550 MG TAB (XIFAXAN) PO SCH (08:51)
[2023-09-02] MEDS: MAGNESIUM OXIDE 400MG TAB (MAG-OX) PO SCH (08:51)
[2023-09-02] MEDS: FINASTERIDE 5MG TAB PO SCH (08:51)
[2023-09-02] MEDS: MEROPENEM INJ 1 GM in IV 1 EA IV SCH ×2 (12:00→20:29)
[2023-09-02] MEDS: FERROUS SULFATE 325MG TAB PO SCH (12:00)
[2023-09-02] MEDS: LINEZOLID 600 MG in IV 1 EA IV SCH (13:22)
[2023-09-02] MEDS: PANTOPRAZOLE 40MG VIAL IV SCH (15:09)
[2023-09-03] VITALS (8 sets, daily range): BP systolic 126–140; BP diastolic 60–67; TEMP 97.2–98.6; O2SAT 91–95
[2023-09-03] MEDS: IPRATROPIUM 0.5MG/ALBUTEROL 2.5MG INH SOL UD 3ML (DUONEB) NEB SCH ×4 (01:09→19:41)
[2023-09-03] MEDS: LINEZOLID 600 MG in IV 1 EA IV SCH (03:19)
[2023-09-03] MEDS: MEROPENEM INJ 1 GM in IV 1 EA IV SCH ×3 (04:51→21:37)
[2023-09-03] MEDS: HEPARIN SOD (PORCINE) 5000UNITS/ML 1ML VIAL/SYRINGE SC SCH ×3 (04:52→21:39)
[2023-09-03] MEDS: methylPREDNISolone 40MG 1ML VIAL IV SCH ×2 (06:07→19:29)
[2023-09-03] MEDS: rifAXIMin 550 MG TAB (XIFAXAN) PO SCH (08:22)
[2023-09-03] MEDS: MAGNESIUM OXIDE 400MG TAB (MAG-OX) PO SCH (08:22)
[2023-09-03] MEDS: FINASTERIDE 5MG TAB PO SCH (08:22)
[2023-09-03] MEDS: INSULIN LISPRO (NovoLOG) PER UNIT SC SCH ×4 (08:22→21:00)
[2023-09-03] MEDS: ASPIRIN 81MG ENTERIC TABLET PO SCH (08:22)
[2023-09-03] MEDS: TAMSULOSIN 0.4 MG CAP PO SCH (08:22)
[2023-09-03] MEDS: ursodioL 300MG CAP PO SCH ×4 (08:22→21:44)
[2023-09-03 08:41] LABS: HEMATOCRIT 28.5 % (42.0-52.0); HEMOGLOBIN 8.4 g/dl (13.5-17.5); MEAN CORPUSCULAR HEMOGLOBIN 29.8 pg (27.0-33.0); MEAN CORPUSCULAR HGB CONC 29.5 g/dl (32.0-36.5); MEAN CORPUSCULAR VOLUME 101.1 fl (80.0-96.0); PLATELET COUNT, AUTOMATED 153 10^3/uL (150-450); RED BLOOD COUNT 2.82 10^6/uL (4.30-6.10); WHITE BLOOD COUNT 26.1 10^3/uL (4.0-10.0)
[2023-09-03] MEDS ORDERED: METAMUCIL (PSYLLIUM) PACKET PO SCH (09:00)
[2023-09-03 09:06] LABS: BLOOD UREA NITROGEN 35 MG/DL (9-23); CALCIUM LEVEL 9.1 MG/DL (8.3-10.6); CARBON DIOXIDE LEVEL 35 MMOL/L (20-31); CHLORIDE LEVEL 103 MMOL/L (98-107); CREATININE FOR GFR 0.93 MG/DL (0.70-1.30); GLOMERULAR FILTRATION RATE > 60.0 (>42); GLUCOSE, FASTING 229 MG/DL (74-106); POTASSIUM SERUM 4.8 MMOL/L (3.5-5.1); SODIUM LEVEL 139 MMOL/L (136-145)
[2023-09-03] MEDS: SYMBICORT 160/4.5MCG INHALER 6GM INH SCH ×2 (09:10→19:41)
[2023-09-03] MEDS: TIOTROPIUM INHALER/CAPSULE (SPIRIVA) INH SCH (09:10)
[2023-09-03] MEDS: PANTOPRAZOLE 40MG VIAL IV SCH (15:05)
[2023-09-03] MEDS: LINEZOLID 600MG TABLET (ZYVOX) PO SCH (15:05)
[2023-09-03 18:29] LABS: TOTAL PROTEIN, BODY FLUID < 2.0 G/DL (NOT ESTABLISHED)
[2023-09-03 18:51] LABS: APPEARANCE, BODY FLUID HAZY (CLEAR); ASCITES FL COLOR COLORLESS (COLORLESS); SOURCE, BODY FLUID ASCITES
[2023-09-03 18:55] LABS: SOURCE, BODY FLUID ALBUMIN ASCITES
[2023-09-03 19:12] LABS: SOURCE, BODY FLUID GLUCOSE ASCITES; SOURCE, BODY FLUID TOT PROTEIN ASCITES
[2023-09-04] VITALS (14 sets, daily range): BP systolic 124–150; BP diastolic 60–70; TEMP 97.4–98.2; O2SAT 89–98
[2023-09-04] MEDS: IPRATROPIUM 0.5MG/ALBUTEROL 2.5MG INH SOL UD 3ML (DUONEB) NEB SCH ×4 (01:19→19:49)
[2023-09-04] MEDS: LINEZOLID 600MG TABLET (ZYVOX) PO SCH ×2 (04:12→15:09)
[2023-09-04] MEDS: MEROPENEM INJ 1 GM in IV 1 EA IV SCH ×2 (04:59→13:16)
[2023-09-04] MEDS: HEPARIN SOD (PORCINE) 5000UNITS/ML 1ML VIAL/SYRINGE SC SCH ×3 (06:37→20:35)
[2023-09-04] MEDS: methylPREDNISolone 40MG 1ML VIAL IV SCH ×2 (07:55→17:31)
[2023-09-04] MEDS: INSULIN LISPRO (NovoLOG) PER UNIT SC SCH ×4 (07:56→20:32)
[2023-09-04] MEDS: TIOTROPIUM INHALER/CAPSULE (SPIRIVA) INH SCH (08:13)
[2023-09-04] MEDS: SYMBICORT 160/4.5MCG INHALER 6GM INH SCH ×2 (08:13→19:49)
[2023-09-04] MEDS: MAGNESIUM OXIDE 400MG TAB (MAG-OX) PO SCH (08:37)
[2023-09-04] MEDS: FINASTERIDE 5MG TAB PO SCH (08:37)
[2023-09-04] MEDS: rifAXIMin 550 MG TAB (XIFAXAN) PO SCH (08:37)
[2023-09-04] MEDS: ASPIRIN 81MG ENTERIC TABLET PO SCH (08:37)
[2023-09-04] MEDS: ursodioL 300MG CAP PO SCH ×3 (08:37→20:34)
[2023-09-04] MEDS: TAMSULOSIN 0.4 MG CAP PO SCH (08:38)
[2023-09-04] MEDS: FUROSEMIDE 10MG PER 1/2 TABLET PO SCH (09:00)
[2023-09-04] MEDS: SPIRONOLACTONE 25 MG TAB PO SCH (09:00)
[2023-09-04 11:27] LABS: C REACTIVE PROTEIN QUANTITATIV 0.6 MG/DL (<1.0)
[2023-09-04 11:36] LABS: PROCALCITONIN 0.15 ng/ml
[2023-09-04] MEDS: FERROUS SULFATE 325MG TAB PO SCH (11:54)
[2023-09-04] MEDS ORDERED: RAMELTEON 8 MG TAB (ROZEREM) PO PRN (15:00)
[2023-09-04] MEDS: PANTOPRAZOLE 40MG VIAL IV SCH (15:09)
[2023-09-04] MEDS: MIDODRINE 5 MG TAB PO SCH (15:12)
[2023-09-04 17:01] LABS: CLOSTRIDIUM DIFFICILE PCR NEGATIVE (NEGATIVE)
[2023-09-04] MEDS: METOPROLOL TART 12.5 MG PER 1/2 TAB PO SCH (20:34)
[2023-09-05] VITALS (12 sets, daily range): BP systolic 115–127; BP diastolic 60–66; TEMP 97.5–97.9; O2SAT 82–100
[2023-09-05] MEDS: IPRATROPIUM 0.5MG/ALBUTEROL 2.5MG INH SOL UD 3ML (DUONEB) NEB SCH ×4 (02:24→20:56)
[2023-09-05 05:33] LABS: HEMATOCRIT 26.7 % (42.0-52.0); MEAN CORPUSCULAR HEMOGLOBIN 30.5 pg (27.0-33.0); MEAN CORPUSCULAR VOLUME 101.9 fl (80.0-96.0); PLATELET COUNT, AUTOMATED 132 10^3/uL (150-450); RED BLOOD COUNT 2.62 10^6/uL (4.30-6.10); WHITE BLOOD COUNT 15.9 10^3/uL (4.0-10.0)
[2023-09-05 05:55] LABS: ALBUMIN 2.2 G/DL (3.2-5.2); ALKALINE PHOSPHATASE 54 U/L (46-116); ALT/SGPT 18 U/L (7.0-40); AST/SGOT 15 U/L (<34); BILIRUBIN,TOTAL 0.3 MG/DL (0.3-1.2); BLOOD UREA NITROGEN 22 MG/DL (9-23); CALCIUM LEVEL 8.6 MG/DL (8.3-10.6); CARBON DIOXIDE LEVEL 38 MMOL/L (20-31); CHLORIDE LEVEL 104 MMOL/L (98-107); CREATININE FOR GFR 0.82 MG/DL (0.70-1.30); GLOMERULAR FILTRATION RATE > 60.0 (>42); GLUCOSE, FASTING 108 MG/DL (74-106); MAGNESIUM LEVEL 1.9 MG/DL (1.8-2.4); POTASSIUM SERUM 4.3 MMOL/L (3.5-5.1); SODIUM LEVEL 141 MMOL/L (136-145); TOTAL PROTEIN 5.1 G/DL (5.7-8.2)
[2023-09-05] MEDS: HEPARIN SOD (PORCINE) 5000UNITS/ML 1ML VIAL/SYRINGE SC SCH ×3 (06:10→21:05)
[2023-09-05] MEDS: methylPREDNISolone 40MG 1ML VIAL IV SCH (06:10)
[2023-09-05] MEDS: ALBUTEROL SULFATE 2.5MG/0.5ML INH NEB SOLN NEB PRN ×2 (07:38→07:39)
[2023-09-05] MEDS: SYMBICORT 160/4.5MCG INHALER 6GM INH SCH ×2 (07:39→20:56)
[2023-09-05] MEDS: TIOTROPIUM INHALER/CAPSULE (SPIRIVA) INH SCH (07:39)
[2023-09-05] MEDS: FINASTERIDE 5MG TAB PO SCH (09:16)
[2023-09-05] MEDS: TAMSULOSIN 0.4 MG CAP PO SCH (09:16)
[2023-09-05] MEDS: INSULIN LISPRO (NovoLOG) PER UNIT SC SCH ×4 (09:16→20:10)
[2023-09-05] MEDS: MAGNESIUM OXIDE 400MG TAB (MAG-OX) PO SCH (09:16)
[2023-09-05] MEDS: rifAXIMin 550 MG TAB (XIFAXAN) PO SCH (09:16)
[2023-09-05] MEDS: ursodioL 300MG CAP PO SCH ×3 (09:16→20:09)
[2023-09-05] MEDS: ASPIRIN 81MG ENTERIC TABLET PO SCH (09:16)
[2023-09-05] MEDS: MIDODRINE 5 MG TAB PO SCH ×3 (09:16→17:04)
[2023-09-05] MEDS: SPIRONOLACTONE 25 MG TAB PO SCH (09:17)
[2023-09-05] MEDS: METOPROLOL TART 12.5 MG PER 1/2 TAB PO SCH ×2 (09:17→20:12)
[2023-09-05] MEDS: FUROSEMIDE 10MG PER 1/2 TABLET PO SCH (09:17)
[2023-09-05 12:24] LABS: ABG BASE EXCESS 6.1 (-2.0-2.0); ABG HCO3 32.3 MMOL/L (22.0-26.0); ABG PARTIAL PRESSURE CO2 57.1 mmHg (35.0-45.0); ABG PARTIAL PRESSURE O2 41.3 mmHg (75.0-100.0); ABG STANDARD HCO3 29.6 MMOL/L. (22.0-26.0); ABG TOTAL CO2 34.1 MMOL/L (23.0-31.0); ABG pH (ARTERIAL) 7.371 UNITS (7.350-7.450)
[2023-09-05 13:07] LABS: ABG O2 SATURATION 99.4 % (95.0-99.0); ABG PARTIAL PRESSURE O2 329.8 mmHg (75.0-100.0); ABG pH (ARTERIAL) 7.332 UNITS (7.350-7.450)
[2023-09-05 13:12] LABS: ABG PARTIAL PRESSURE CO2 63.8 mmHg (35.0-45.0)
[2023-09-05 14:34] LABS: BASO % 0.1 % (0.0-1.0); HEMATOCRIT 28.3 % (42.0-52.0); HEMOGLOBIN 8.3 g/dl (13.5-17.5); LYMPH # 0.4 10^3/uL (1.5-5.0); LYMPH % 2.6 % (24.0-44.0); MEAN CORPUSCULAR HEMOGLOBIN 30.1 pg (27.0-33.0); MEAN CORPUSCULAR HGB CONC 29.3 g/dl (32.0-36.5); MEAN CORPUSCULAR VOLUME 102.5 fl (80.0-96.0); MONO # 0.9 10^3/uL (0.0-0.8); MONO % 5.3 % (2.0-8.0); NEUTROPHILS # 15.1 10^3/uL (1.5-8.5); PLATELET COUNT, AUTOMATED 136 10^3/uL (150-450); RED BLOOD COUNT 2.76 10^6/uL (4.30-6.10); WHITE BLOOD COUNT 16.6 10^3/uL (4.0-10.0)
[2023-09-05] MEDS ORDERED: ISOVUE-370 76% 100ML VIAL As Ordered ONE (15:12)
[2023-09-05] MEDS: PANTOPRAZOLE 40MG VIAL IV SCH (15:19)
[2023-09-05] MEDS ORDERED: OLANZapine 2.5MG TABLET PO ONE (17:25)
[2023-09-05 17:46] LABS: CA19-9 TUMOR MARKER,CARBOHYDRA 25.4 U/ML (<35.0)
[2023-09-05 18:39] LABS: ALBUMIN 2.4 G/DL (3.2-5.2); BILIRUBIN,DIRECT 0.1 MG/DL (<0.4); BILIRUBIN,TOTAL 0.3 MG/DL (0.3-1.2); TOTAL PROTEIN 5.1 G/DL (5.7-8.2)
[2023-09-05] MEDS: ACETAMINOPHEN TAB 650MG DOSE (2X325MG) PO PRN (20:09)
[2023-09-05 21:05] LABS: ABG BASE EXCESS 6.9 (-2.0-2.0); ABG HCO3 32.5 MMOL/L (22.0-26.0); ABG O2 SATURATION 90.3 % (95.0-99.0); ABG PARTIAL PRESSURE CO2 52.4 mmHg (35.0-45.0); ABG PARTIAL PRESSURE O2 57.4 mmHg (75.0-100.0); ABG STANDARD HCO3 30.6 MMOL/L. (22.0-26.0); ABG TOTAL CO2 34.1 MMOL/L (23.0-31.0)
[2023-09-06] VITALS (8 sets, daily range): BP systolic 115–126; BP diastolic 56–63; TEMP 97.5; O2SAT 82–96
[2023-09-06 00:07] LABS: HBV HBV DNA not detected IU/mL (.); HBVCOREDIFF1 Negative (Negative); HBVCOREDIFF2 Negative (Negative); HEPATITIS BE ANTIBODY Negative (Negative); HEPATITIS BE ANTIGEN Negative (Negative)
[2023-09-06] MEDS ORDERED: HALOPERIDOL 5MG/ML 1ML VIAL IM PRN (00:30)
[2023-09-06] MEDS: IPRATROPIUM 0.5MG/ALBUTEROL 2.5MG INH SOL UD 3ML (DUONEB) NEB SCH ×3 (01:06→14:00)
[2023-09-06] MEDS: HEPARIN SOD (PORCINE) 5000UNITS/ML 1ML VIAL/SYRINGE SC SCH (05:15)
[2023-09-06] MEDS: SYMBICORT 160/4.5MCG INHALER 6GM INH SCH (07:15)
[2023-09-06] MEDS: TIOTROPIUM INHALER/CAPSULE (SPIRIVA) INH SCH (07:15)
[2023-09-06] MEDS: INSULIN LISPRO (NovoLOG) PER UNIT SC SCH (07:24)
[2023-09-06 07:42] LABS: BASO % 0.1 % (0.0-1.0); EOS # 0.3 10^3/uL (0.0-0.5); EOS % 1.2 % (0.0-3.0); HEMATOCRIT 33.8 % (42.0-52.0); LYMPH # 1.5 10^3/uL (1.5-5.0); LYMPH % 7.1 % (24.0-44.0); MEAN CORPUSCULAR HEMOGLOBIN 29.7 pg (27.0-33.0); MEAN CORPUSCULAR HGB CONC 29.6 g/dl (32.0-36.5); MEAN CORPUSCULAR VOLUME 100.3 fl (80.0-96.0); MONO # 2.4 10^3/uL (0.0-0.8); MONO % 11.3 % (2.0-8.0); NEUTROPHILS # 17.1 10^3/uL (1.5-8.5); NEUTROPHILS % 79.3 % (36.0-66.0); PLATELET COUNT, AUTOMATED 173 10^3/uL (150-450); RED BLOOD COUNT 3.37 10^6/uL (4.30-6.10); WHITE BLOOD COUNT 21.6 10^3/uL (4.0-10.0)
[2023-09-06 08:03] LABS: BLOOD UREA NITROGEN 21 MG/DL (9-23); CALCIUM LEVEL 8.7 MG/DL (8.3-10.6); CARBON DIOXIDE LEVEL 36 MMOL/L (20-31); CHLORIDE LEVEL 106 MMOL/L (98-107); CREATININE FOR GFR 0.81 MG/DL (0.70-1.30); GLOMERULAR FILTRATION RATE > 60.0 (>42); GLUCOSE, FASTING 71 MG/DL (74-106); POTASSIUM SERUM 4.3 MMOL/L (3.5-5.1); SODIUM LEVEL 143 MMOL/L (136-145)
[2023-09-06] MEDS: ASPIRIN 81MG ENTERIC TABLET PO SCH (08:48)
[2023-09-06] MEDS: TAMSULOSIN 0.4 MG CAP PO SCH (08:49)
[2023-09-06] MEDS: MAGNESIUM OXIDE 400MG TAB (MAG-OX) PO SCH (08:50)
[2023-09-06] MEDS: FINASTERIDE 5MG TAB PO SCH (08:50)
[2023-09-06] MEDS: ursodioL 300MG CAP PO SCH (08:50)
[2023-09-06] MEDS: rifAXIMin 550 MG TAB (XIFAXAN) PO SCH (08:50)
[2023-09-06] MEDS: METOPROLOL TART 12.5 MG PER 1/2 TAB PO SCH (08:50)
[2023-09-06] MEDS: MIDODRINE 5 MG TAB PO SCH (08:51)
[2023-09-06] MEDS ORDERED: FUROSEMIDE 20 MG TAB PO SCH (09:00)
[2023-09-06] MEDS ORDERED: SPIRONOLACTONE 50 MG TAB PO SCH (09:00)
[2023-09-06] MEDS ORDERED: predniSONE 20 MG TAB PO SCH (09:00)
[2023-09-06] MEDS ORDERED: LORazepam 2 MG/ML 1ML VIAL IV PRN (10:50)
[2023-09-06] MEDS ORDERED: LORazepam 1 MG TAB PO PRN (10:50)
[2023-09-06] MEDS ORDERED: MORPHINE 2 MG/ML 1ML VIAL IV PRN (10:50)
[2023-09-06] MEDS ORDERED: FLEET ENEMA PR PRN (10:50)
[2023-09-06] MEDS ORDERED: ONDANSETRON 4MG 2ML VIAL IV PRN (10:50)
[2023-09-06] MEDS ORDERED: HYOSCYAMINE SULFATE 0.125 MG SUBL TABLET PO PRN (10:50)
[2023-09-06] MEDS ORDERED: ONDANSETRON 4MG ORAL DISINTEGRATING TAB PO PRN (10:50)
[2023-09-06] MEDS ORDERED: SCOPOLAMINE 1MG TRANSDERMAL PATCH TOP PRN (10:50)
[2023-09-06] MEDS ORDERED: BISACODYL 10MG SUPP PR PRN (10:50)
[2023-09-06] MEDS ORDERED: ATROPINE SULFATE 1% OPHTH SOLN 2ML BTL SL PRN (10:50)
[2023-09-06] MEDS ORDERED: MORPHINE 10MG/0.5ML ORAL CONCENTRATE SOLUTION U/D SL PRN (10:50)
[2023-09-06] MEDS ORDERED: IPRATROPIUM 0.5MG/ALBUTEROL 2.5MG INH SOL UD 3ML (DUONEB) NEB PRN (17:00)
[2023-09-07] MEDS: LOPERAMIDE 2 MG CAPLET PO PRN ×2 (08:00→17:18)
[2023-09-07] MEDS ORDERED: LOPERAMIDE 2 MG CAPLET PO ONE (10:10)
[2023-09-08] MEDS: LOPERAMIDE 2 MG CAPLET PO PRN ×3 (08:23→22:09)
[2023-09-08] MEDS ORDERED: ONDANSETRON 4MG 2ML VIAL IV ONE (21:20)
== END 2023-09-09 07:35 | disposition expired | DRG 190 ==
LOC: EDBD 20:05 → M ED 20:05 → M ED INP 23:32 → ENRESERV 08-27 02:34 → M ICU 08-27 03:22 → M PCU 08-28 05:30 → M MSPAV 08-30 23:11 → M PCU 08-31 13:26 → M ICU 08-31 14:53 → M PCU 09-03 19:58 → M MSPAV 09-04 16:15
PROVIDERS: ADMIT Internal Medicine; ATTEND Internal Medicine
PROC: 0W9G3ZZ Drainage of Peritoneal Cavity, Percutaneous Approach (ICD-10-PCS; principal; 2023-09-03 16:00)
DX: J44.1 Chronic obstructive pulmonary disease with (acute) exacerbation (principal); J96.21 Acute and chronic respiratory failure with hypoxia; J96.22 Acute and chronic respiratory failure with hypercapnia; G93.41 Metabolic encephalopathy; J15.69 Pneumonia due to other Gram-negative bacteria; I50.33 Acute on chronic diastolic (congestive) heart failure; N39.0 Urinary tract infection, site not specified; D61.818 Other pancytopenia; K50.90 Crohn's disease, unspecified, without complications; R18.8 Other ascites; E46 Unspecified protein-calorie malnutrition; K56.7 Ileus, unspecified; R44.3 Hallucinations, unspecified; K76.6 Portal hypertension; C18.9 Malignant neoplasm of colon, unspecified; I13.0 Hypertensive heart and chronic kidney disease with heart failure and stage 1 through stage 4 chronic kidney disease, or unspecified chronic kidney disease; I27.20 Pulmonary hypertension, unspecified; I27.81 Cor pulmonale (chronic); K21.9 Gastro-esophageal reflux disease without esophagitis; K74.60 Unspecified cirrhosis of liver; N18.9 Chronic kidney disease, unspecified; E87.5 Hyperkalemia; B96.1 Klebsiella pneumoniae [K. pneumoniae] as the cause of diseases classified elsewhere; F17.200 Nicotine dependence, unspecified, uncomplicated; E88.09 Other disorders of plasma-protein metabolism, not elsewhere classified; N40.0 Benign prostatic hyperplasia without lower urinary tract symptoms; G47.33 Obstructive sleep apnea (adult) (pediatric); E11.9 Type 2 diabetes mellitus without complications; D50.9 Iron deficiency anemia, unspecified; D63.8 Anemia in other chronic diseases classified elsewhere; R57.1 Hypovolemic shock; Z88.8 Allergy status to other drugs, medicaments and biological substances; Z79.899 Other long term (current) drug therapy; Z79.82 Long term (current) use of aspirin; Z66 Do not resuscitate; Z79.52 Long term (current) use of systemic steroids